=== PATIENT | female | born 1935 | race Caucasian/White ===

== ENCOUNTER → 2017-02-13 | Outpatient (CLI) | payer BC ==
[~2017-02-13] MED LIST: ACET-1256 PO; ASCO500C43 PO; ASPI81TA28 PO; CALC-51 PO; CETI10TA84 PO; CHOL100027 PO; FLUT0.15 NAE; GLUC10007 PO; LISI-729 PO; METO50TA16 PO; MULT-506 PO; OMEG10007 PO; POTA10CA28 PO; PRLSR20 PO; TRIA37.5 PO; VLTG TOP
[2017-02-13 13:28] LABS: ALT/SGPT 32 U/L (12-78); AST/SGOT 24 U/L (15-37); BLOOD UREA NITROGEN 20 mg/dl (7-18); BUN/CREATININE RATIO 17.8 (10-20); CALCIUM 9.7 mg/dl (8.5-10.1); CARBON DIOXIDE 25 mmol/L (21-32); CHLORIDE 106 mmol/L (98-107); CHOLESTEROL 150 mg/dl (0-200); GLUCOSE 103 mg/dl (70-99); SODIUM 140 mmol/L (136-145); TRIGLYCERIDES 227 mg/dl (0-150); VERY LOW DENSITY LIPOPROT CALC 45 mg/dl
[2017-02-13 13:33] LABS: ALB/GLOB RATIO 0.9 (0.9-2); ALKALINE PHOSPHATASE 65 U/L (45-117); CHOLESTEROL/HDL RATIO 3.8; HDL CHOLESTEROL 40 mg/dl; LDL CHOLESTEROL CALCULATED 65 mg/dl
[2017-02-13 13:58] LABS: ESTIMATED AVERAGE GLUCOSE 134 mg/dl; HA1C FLAG Normal (Normal)
== END | disposition home or self-care (01) ==
LOC: C.LABPVFM 07:58
PROVIDERS: ATTEND Family Medicine
DX: E78.5 Hyperlipidemia, unspecified (principal); M25.532 Pain in left wrist; I10 Essential (primary) hypertension; R73.03 Prediabetes

== ENCOUNTER → 2017-08-16 | Outpatient (CLI) | payer BC ==
[2017-08-16 13:13] LABS: HEMOGLOBIN A1C 6.3 % (4.5-5.6)
== END | disposition home or self-care (01) ==
LOC: C.LABPVFM 08:10
PROVIDERS: ATTEND Internal Medicine Cardiovascular Disease
DX: E78.5 Hyperlipidemia, unspecified (principal); R73.01 Impaired fasting glucose; K21.0 Gastro-esophageal reflux disease with esophagitis; I48.0 Paroxysmal atrial fibrillation; I10 Essential (primary) hypertension

== ENCOUNTER → 2017-09-17 | Outpatient (CLI) | payer BC ==
--- NOTE | 2017-09-17 09:32 | DIAGNOSTIC IMAGING REPORT ---
LEFT HIP 2 VIEWS HISTORY: Left hip pain. COMPARISON: None. FINDINGS: There is no fracture or dislocation. Soft tissues are unremarkable. The visualized pelvic bones are intact. Cartilage spaces are maintained for age. IMPRESSION: Unremarkable left hip for age. Electronically signed by: Manuel Gilbert M.D. 09/17/2017 9:30 AM Dictated Date/Time: 09/17/2017 9:27 AM
--- NOTE | 2017-09-17 09:48 | DIAGNOSTIC IMAGING REPORT ---
L-SPINE MIN 4 VIEWS ROUTINE CLINICAL HISTORY: Lower back pain. Left hip pain. COMPARISON: Lumbar spine radiographs January 08, 2012. FINDINGS: Mild levoscoliosis of the lumbar spine is noted. No fracture or suspicious lesion is identified by radiography. Vertebral body heights are maintained. There is moderate to severe multilevel disc space narrowing with osteophytosis and vacuum disc phenomenon. There is severe multilevel facet arthrosis. IMPRESSION: 1. No lumbar spine fracture or subluxation. 2. 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 3. Mild levoscoliosis of the lumbar spine. Electronically signed by: Jose Segura M.D. 09/17/2017 9:47 AM Dictated Date/Time: 09/17/2017 9:45 AM
== END | disposition home or self-care (01) ==
LOC: C.RAD 08:47
PROVIDERS: ATTEND Family Medicine
DX: M25.552 Pain in left hip (principal)

== ENCOUNTER 2020-07-18 20:29 | Inpatient (IN) ==
--- NOTE | 2020-07-18 20:40 | Emergency Department Note ---
Impression & Plan Acute respiratory failure with hypoxemia, Dehydration, COVID-19 ED Provider Note NAME: TIMA DAVIDSON AGE: 85 SEX: F : 1935 ARRIVES VIA: Ambulance INFORMANT: Patient, ED PROVIDER(S): Marquise Gaytan MD Chief Complaint: Weakness HPI: Patient does present from home for increasing weakness and fatigue. Ambulance did picker operator the patient as she was unable to get out of bed. Patient has had worsening symptoms of fatigue over the last 7 days. The patient has had decreased p.o. intake. Patient does live with her who is having similar symptoms. Patient denies fever chills chest pains or shortness of breath but the patient was noted to have fever of 100.9 and did have an oxygen requirement as the patient was 88% on room air. Patient denies any cough. Patient's BSG prior to arrival was just above 200. Patient did receive 100 cc of IV fluids in route. Per review of the chart the patient does have a known history of A. fib not on anticoagulation additional hypertension hyperlipidemia. The patient did not take her medications today. ROS: See HPI for pertinent positives and negatives. A total of 10 systems were reviewed and otherwise negative. Past medical history: See below Surgical history: See below Social history: See below Physical Exam: GENERAL: Nasal cannula and mask in place. EYE EXAM: Normal conjunctiva. PERRL, no anisocoria and EOM's grossly intact w/o pain. NECK: Supple, no nuchal rigidity, no adenopathy, non-tender. No signs of meningismus. LUNGS: Crackles throughout. Normal chest wall mechanics. HEART: NSR, no MRG. ABDOMEN: Abdomen soft, non-tender, normo-active bowel sounds, no masses, no rebound or guarding. BACK: No CVA TTP. SKIN: No rashes and no bruising. UPPER EXTREMITIES: Upper extremities are grossly normal. LOWER EXTREMITIES: Grossly normal, no edema. Negative Homans' sign bilaterally. NEURO EXAM: A&O x3, cranial nerves II-XII grossly intact, normal speech, moves all 4 extremities on command w/o issue. Differential diagnoses: Infection, dehydration, metabolic abnormality, hypo/hyperglycemia, electrolyte disturbance, anemia, hypoxia, cardiac sources, intracerebral event, toxicologic, neurologic, as well as other pathologies. Course: Patient was seen and evaluated the bedside. Full history physical exam was performed. EKG: Indication: weakness Normal sinus rhythm, rate 87, normal intervals, left axis deviation, T wave inv ersion in the high lateral leads. No significant change from comparison EKG May 2016 Imaging Studies: Radiology results as stated below per my review in the radiologist's interpretation: XR chest 1V portable HISTORY: Dyspnea COMPARISON: Chest 05/14/2016. FINDINGS: No pneumothorax. Suspect trace bilateral pleural effusions. The heart remains mildly enlarged. Hazy airspace opacities within the bilateral mid lung zones. This could represent developing pulmonary edema or a viral pneumonia. IMPRESSION: Hazy airspace opacities within the bilateral mid lung zones which could represent a developing pulmonary edema or a viral pneumonia. ACT 112: Negative or not required by law. Electronically signed by: Manuel Gilbert M.D. 07/19/2020 7:40 AM Dictated: 07/19/20738Transcribed: 07/19/20738 Cardiac monitoring: An order was placed for continuous cardiac monitoring. The monitor shows a rate 75 with sinus rhythm. MDM: Patient does present with concern for weakness and on arrival the patient does have a reported fever and oxygen requirement. Patient has had likely Covid symptoms with increasing feet fatigue and weakness. The patient's had had some similar symptoms but for more prolonged period of time. Patient's blood work shows a normal white count H&H and platelet count. The patient does have lymphopenia. The patient does have likely dehydration with a positive troponin. The patient's Covid is positive. The patient was ordered dexamethasone. Chest x-ray does show some patchiness. Given the patient's oxygen requirement fever and positive troponin believe the patient would benefit from inpatient treatment. I did speak the on-call hospitalist Dr. Sharma and the patient was admitted to the medicine service. Critical Care: I have personally spent 47 minutes of critical care time in direct management of this patient. This includes bedside care, interpretation of diagnostic studies, and testing, discussion with consultants, patient, and family members, and other require inpatient management activities. This 47 minutes is in excess of all separately billable procedures. Past Med/Surg History Medical History Anxiety HX Diabetes mellitus History of migraine History of squamous cell carcinoma EMMONAK (hard of hearing) BL H[place] Hyperlipidemia Hypertension Osteoarthritis Seasonal allergies Surgical History History of carpal tunnel surgery of right wrist History of colonoscopy History of phacoemulsification of cataract of left eye with intraocular lens implantation AND RIGHT EYE History of removal of cyst THYROID AGE 18-BENIGN? History of tonsillectomy History of tubal ligation Family History Sister Family history of reaction to anesthesia SLOW TO WAKE UP Family history of diabetes mellitus BORDERLINE Breast cancer Mother Family history of diabetes mellitus BORDERLINE Stroke Father Coronary heart disease Stroke Denies family history of Ovarian cancer Prostate cancer Myocardial infarction Colorectal cancer Social History Smoking Status: Never smoker Second Hand Exposure: Yes (SPOUSE); Hx Alcohol Use: No Hx Substance Use: No Preferred Language: Occitan Communication Ability: Effective Communication Ability Comment: [facility] Clothing Cutter Required: No Beliefs That Will Affect Care: None marital status: Current Living Situation: Spouse current occupational status: retired Other Information That Helps Us Care for You: No Feels Safe at Home: Yes Safety Concerns: Feels Safe At This Time caffeine: No Dental Care, Regularly: No Physical Activity Frequency: Does not Exercise Seatbelt Use: always Sunscreen Use: No Assistive Devices: Glasses and Oxygen - Continuous Allergies Allergies Allergy/AdvReac Type Severity Reaction Status Date / Time ibuprofen AdvReac Intermediate AFFECTS Verified 07/18/20 21:50 KIDNEY FUNCTION Home Meds Home Medications Medication Instructions Recorded Confirmed Artificial Tears (PF) 1 drp OPHTHALMIC (EYE) QID 04/10/19 07/18/20 Systane Ultra 1 drops OP BID 04/10/19 07/18/20 acetaminophen 500 mg PO UD PRN 04/10/19 07/18/20 ascorbic acid (vitamin C) [Vitamin 500 mg PO QAM 04/10/19 07/18/20 C] aspirin 81 mg PO QPM 04/10/19 07/18/20 calcium carbonate [Calcium 500] 500 mg PO QAM 04/10/19 07/18/20 cholecalciferol (vitamin D3) 1,000 units PO QAM 04/10/19 07/18/20 magnesium 200 mg PO BID 04/10/19 07/18/20 multivitamin 1 tab PO QAM 04/10/19 07/18/20 omega-3 fatty acids 1,000 mg PO QAM 04/10/19 07/18/20 potassium chloride 30 meq PO BID 07/18/20 07/18/20 Previous Rx's Medication Instructions Recorded glucosamine sulfate 500 mg tablet 500 mg PO BID #60 tab 01/04/19 blood sugar diagnostic #100 ea 07/10/19 blood-glucose meter #1 ea 07/10/19 lancets #100 ea 07/10/19 fluticasone propionate 50 See Rx Instructions .ROUTE 08/28/19 mcg/actuation nasal .COMPLEX #48 gram spray,suspension triamterene 37.5 1 tab PO BID #180 tab 01/13/20 mg-hydrochlorothiazide 25 mg tablet atorvastatin 20 mg tablet 20 mg PO HS #90 tab 02/15/20 metoprolol tartrate 50 mg tablet 50 mg PO BID #180 tab 02/15/20 triamcinolone acetonide 0.1 % 1 appln TOP BID #30 gm 03/07/20 topical cream lisinopril 5 mg tablet 5 mg PO HS #90 tab 06/21/20 omeprazole 20 mg capsule,delayed 20 mg PO DAILY #90 cap 07/11/20 release Results & Data (ED) Vital Signs Vital Signs - 24 hr 07/18/20 20:41 07/18/20 20:54 07/18/20 21:30 Temperature 38.3 C H Temperature Source Oral Pulse Rate 86 80 80 Pulse Rate from SpO2 Sensor 85 80 Respiratory Rate 25 H 24 24 Respiratory Effort / Characteristics Non-Labored Respiratory Depth Normal Respiratory Pattern Regular Blood Pressure 167/71 H 170/67 H 166/57 H Blood Pressure Mean 108 101 100 Blood Pressure Position Sitting Pulse Oximetry 92 88 L 95 Oxygen Delivery Method Nasal Cannula Room Air Nasal Cannula Oxygen Flow Rate 2 2 2 Sepsis Recent Fever Within 48 Hours Yes Sepsis New/Unexplained Change in Mental Status No Sepsis Action Taken by Nursing Physician Notified Oxygen Flow Rate - Titration 2 Pulse Oximetry Post Tiitration 94 07/18/20 22:00 07/18/20 22:31 07/18/20 22:49 Temperature 37.1 C Temperature Source Oral Pulse Rate 82 82 Pulse Rate from SpO2 Sensor 82 83 Respiratory Rate 25 H 25 H Respiratory Effort / Characteristics Respiratory Depth Respiratory Pattern Blood Pressure 150/65 H 141/50 H Blood Pressure Mean 104 71 Blood Pressure Position Pulse Oximetry 93 92 Oxygen Delivery Method Nasal Cannula Nasal Cannula Oxygen Flow Rate 2 2 Sepsis Recent Fever Within 48 Hours Sepsis New/Unexplained Change in Mental Status Sepsis Action Taken by Nursing Oxygen Flow Rate - Titration Pulse Oximetry Post Tiitration 07/18/20 23:00 07/18/20 23:30 07/19/20 00:00 Temperature Temperature Source Pulse Rate 78 75 73 Pulse Rate from SpO2 Sensor 77 75 74 Respiratory Rate 26 H 22 24 Respiratory Effort / Characteristics Respiratory Depth Respiratory Pattern Blood Pressure 134/62 115/50 L 126/58 L Blood Pressure Mean 97 92 97 Blood Pressure Position Pulse Oximetry 93 91 94 Oxygen Delivery Method Nasal Cannula Oxygen Flow Rate 2 Sepsis Recent Fever Within 48 Hours Sepsis New/Unexplained Change in Mental Status Sepsis Action Taken by Nursing Oxygen Flow Rate - Titration Pulse Oximetry Post Tiitration 07/19/20 00:30 Temperature Temperature Source Pulse Rate 72 Pulse Rate from SpO2 Sensor 72 Respiratory Rate 21 Respiratory Effort / Characteristics Respiratory Depth Respiratory Pattern Blood Pressure 124/52 L Blood Pressure Mean 86 Blood Pressure Position Pulse Oximetry 95 Oxygen Delivery Method Nasal Cannula Oxygen Flow Rate 2 Sepsis Recent Fever Within 48 Hours Sepsis New/Unexplained Change in Mental Status Sepsis Action Taken by Nursing Oxygen Flow Rate - Titration Pulse Oximetry Post Tiitration Home Medications Current Medication List: was personally reviewed by me Laboratory Data Attestation: I reviewed the patient's lab results. Result diagrams: 07/19/20 05:00 07/19/20 05:00 Lab Results 07/18/20 07/18/20 07/18/20 Range/Units 20:49 20:49 20:49 WBC 6.81 (4.8-10.8) K/uL RBC 4.32 (4.2-5.4) M/uL Hgb 13.2 (12.0-16.0) g/dL Hct 40.2 (37-47) % MCV 93.1 (80-100) fL MCH 30.6 (25-34) pg MCHC 32.8 (32-36) g/dL RDW Std Deviation 46.8 H (36.4-46.3) fL RDW Coeff of Rich 13.6 (11.5-14.5) % Plt Count 175 (130-400) K/uL MPV 10.7 H (7.4-10.4) fL Immature Gran % (Auto) 0.7 % Neut % (Auto) 74.8 % Lymph % (Auto) 12.5 % [place] % (Auto) 11.9 % Eos % (Auto) 0.0 % Baso % (Auto) 0.1 % Neut # (Auto) 5.09 (1.4-6.5) K/uL Lymph # (Auto) 0.85 L (1.2-3.4) K/uL [place] # (Auto) 0.81 H (0.11-0.59) K/uL Eos # (Auto) 0.00 (0-0.5) K/uL Baso # (Auto) 0.01 (0-0.2) K/uL Immature Gran # (Auto) 0.05 H (0.00-0.02) K/uL ESR (0-21) mm/hr PT 11.4 (9.0-12.0) Seconds INR 1.1 (0.9-1.1) APTT 29.9 (21.0-31.0) Seconds PTT Ratio 1.1 D-Dimer (0-500) ug/L FEU VBG pH (7.36-7.41) VBG pCO2 (38-50) mmHg VBG pO2 mmHg VBG HCO3 mmol/L VBG O2 Saturation % VBG Base Excess mEq/L Barometric Pressure mm/Hg Sodium 131 L (136-145) mmol/L Potassium (3.5-5.1) mmol/L Chloride 96 L (98-107) mmol/L Carbon Dioxide 27 (21-32) mmol/L Anion Gap 8.0 (3-11) BUN 23 H (7-18) mg/dl Creatinine 1.02 (0.6-1.2) mg/dl Est Cr Clr Drug Dosing 40.8 ml/min Est GFR ( Amer) 58.9 Est GFR (Non-Af Amer) 50.8 BUN/Creatinine Ratio 22.9 H (10-20) Glucose 164 H (70-99) mg/dl Calcium 8.6 (8.5-10.1) mg/dl Phosphorus (2.5-4.9) mg/dl Magnesium (1.8-2.4) mg/dl Ferritin (8-388) ng/ml Total Bilirubin 0.7 (0.2-1) mg/dl AST (15-37) U/L ALT 38 (12-78) U/L Alkaline Phosphatase 49 (45-117) U/L Troponin I 0.091 H* (0-0.045) ng/ml C-Reactive Protein (0-0.29) mg/dl NT-Pro-B Natriuret Pep 1726 (0-1800) pg/ml Total Protein 7.3 (6.4-8.2) gm/dl Albumin 2.8 L (3.4-5.0) gm/dl Globulin 4.5 H (2.5-4.0) gm/dl Albumin/Globulin Ratio 0.6 L (0.9-2) Procalcitonin (0-0.5) ng/ml COVID-19 Eval Order SARS-CoV-2, RNA, NAAT (NEGATIVE) 07/18/20 07/18/20 07/18/20 Range/Units 21:21 21:30 21:30 WBC (4.8-10.8) K/uL RBC (4.2-5.4) M/uL Hgb (12.0-16.0) g/dL Hct (37-47) % MCV (80-100) fL MCH (25-34) pg MCHC (32-36) g/dL RDW Std Deviation (36.4-46.3) fL RDW Coeff of Rich (11.5-14.5) % Plt Count (130-400) K/uL MPV (7.4-10.4) fL Immature Gran % (Auto) % Neut % (Auto) % Lymph % (Auto) % [place] % (Auto) % Eos % (Auto) % Baso % (Auto) % Neut # (Auto) (1.4-6.5) K/uL Lymph # (Auto) (1.2-3.4) K/uL [place] # (Auto) (0.11-0.59) K/uL Eos # (Auto) (0-0.5) K/uL Baso # (Auto) (0-0.2) K/uL Immature Gran # (Auto) (0.00-0.02) K/uL ESR (0-21) mm/hr PT (9.0-12.0) Seconds INR (0.9-1.1) APTT (21.0-31.0) Seconds PTT Ratio D-Dimer (0-500) ug/L FEU VBG pH 7.38 (7.36-7.41) VBG pCO2 46 (38-50) mmHg VBG pO2 35 mmHg VBG HCO3 27 mmol/L VBG O2 Saturation 64.2 % VBG Base Excess 1.1 mEq/L Barometric Pressure 737.1 mm/Hg Sodium (136-145) mmol/L Potassium (3.5-5.1) mmol/L Chloride (98-107) mmol/L Carbon Dioxide (21-32) mmol/L Anion Gap (3-11) BUN (7-18) mg/dl Creatinine (0.6-1.2) mg/dl Est Cr Clr Drug Dosing ml/min Est GFR ( Amer) Est GFR (Non-Af Amer) BUN/Creatinine Ratio (10-20) Glucose (70-99) mg/dl Calcium (8.5-10.1) mg/dl Phosphorus (2.5-4.9) mg/dl Magnesium (1.8-2.4) mg/dl Ferritin (8-388) ng/ml Total Bilirubin (0.2-1) mg/dl AST (15-37) U/L ALT (12-78) U/L Alkaline Phosphatase (45-117) U/L Troponin I (0-0.045) ng/ml C-Reactive Protein (0-0.29) mg/dl NT-Pro-B Natriuret Pep (0-1800) pg/ml Total Protein (6.4-8.2) gm/dl Albumin (3.4-5.0) gm/dl Globulin (2.5-4.0) gm/dl Albumin/Globulin Ratio (0.9-2) Procalcitonin (0-0.5) ng/ml COVID-19 Eval Order Covid19 IDNow atMSDC SARS-CoV-2, RNA, NAAT POSITIVE A* (NEGATIVE) 07/18/20 07/18/20 07/18/20 Range/Units 23:38 23:38 23:38 WBC (4.8-10.8) K/uL RBC (4.2-5.4) M/uL Hgb (12.0-16.0) g/dL Hct (37-47) % MCV (80-100) fL MCH (25-34) pg MCHC (32-36) g/dL RDW Std Deviation (36.4-46.3) fL RDW Coeff of Rich (11.5-14.5) % Plt Count (130-400) K/uL MPV (7.4-10.4) fL Immature Gran % (Auto) % Neut % (Auto) % Lymph % (Auto) % [place] % (Auto) % Eos % (Auto) % Baso % (Auto) % Neut # (Auto) (1.4-6.5) K/uL Lymph # (Auto) (1.2-3.4) K/uL [place] # (Auto) (0.11-0.59) K/uL Eos # (Auto) (0-0.5) K/uL Baso # (Auto) (0-0.2) K/uL Immature Gran # (Auto) (0.00-0.02) K/uL ESR 52 H (0-21) mm/hr PT (9.0-12.0) Seconds INR (0.9-1.1) APTT (21.0-31.0) Seconds PTT Ratio D-Dimer 800 H* (0-500) ug/L FEU VBG pH (7.36-7.41) VBG pCO2 (38-50) mmHg VBG pO2 mmHg VBG HCO3 mmol/L VBG O2 Saturation % VBG Base Excess mEq/L Barometric Pressure mm/Hg Sodium (136-145) mmol/L Potassium (3.5-5.1) mmol/L Chloride (98-107) mmol/L Carbon Dioxide (21-32) mmol/L Anion Gap (3-11) BUN (7-18) mg/dl Creatinine (0.6-1.2) mg/dl Est Cr Clr Drug Dosing ml/min Est GFR ( Amer) Est GFR (Non-Af Amer) BUN/Creatinine Ratio (10-20) Glucose (70-99) mg/dl Calcium (8.5-10.1) mg/dl Phosphorus (2.5-4.9) mg/dl Magnesium (1.8-2.4) mg/dl Ferritin (8-388) ng/ml Total Bilirubin (0.2-1) mg/dl AST (15-37) U/L ALT (12-78) U/L Alkaline Phosphatase (45-117) U/L Troponin I (0-0.045) ng/ml C-Reactive Protein (0-0.29) mg/dl NT-Pro-B Natriuret Pep (0-1800) pg/ml Total Protein (6.4-8.2) gm/dl Albumin (3.4-5.0) gm/dl Globulin (2.5-4.0) gm/dl Albumin/Globulin Ratio (0.9-2) Procalcitonin 0.10 (0-0.5) ng/ml COVID-19 Eval Order SARS-CoV-2, RNA, NAAT (NEGATIVE) 07/18/20 07/18/20 Range/Units 23:39 23:39 WBC (4.8-10.8) K/uL RBC (4.2-5.4) M/uL Hgb (12.0-16.0) g/dL Hct (37-47) % MCV (80-100) fL MCH (25-34) pg MCHC (32-36) g/dL RDW Std Deviation (36.4-46.3) fL RDW Coeff of Rich (11.5-14.5) % Plt Count (130-400) K/uL MPV (7.4-10.4) fL Immature Gran % (Auto) % Neut % (Auto) % Lymph % (Auto) % [place] % (Auto) % Eos % (Auto) % Baso % (Auto) % Neut # (Auto) (1.4-6.5) K/uL Lymph # (Auto) (1.2-3.4) K/uL [place] # (Auto) (0.11-0.59) K/uL Eos # (Auto) (0-0.5) K/uL Baso # (Auto) (0-0.2) K/uL Immature Gran # (Auto) (0.00-0.02) K/uL ESR (0-21) mm/hr PT (9.0-12.0) Seconds INR (0.9-1.1) APTT (21.0-31.0) Seconds PTT Ratio D-Dimer (0-500) ug/L FEU VBG pH (7.36-7.41) VBG pCO2 (38-50) mmHg VBG pO2 mmHg VBG HCO3 mmol/L VBG O2 Saturation % VBG Base Excess mEq/L Barometric Pressure mm/Hg Sodium (136-145) mmol/L Potassium 3.0 L (3.5-5.1) mmol/L Chloride (98-107) mmol/L Carbon Dioxide (21-32) mmol/L Anion Gap (3-11) BUN (7-18) mg/dl Creatinine (0.6-1.2) mg/dl Est Cr Clr Drug Dosing ml/min Est GFR ( Amer) Est GFR (Non-Af Amer) BUN/Creatinine Ratio (10-20) Glucose (70-99) mg/dl Calcium (8.5-10.1) mg/dl Phosphorus 2.6 (2.5-4.9) mg/dl Magnesium 1.4 L (1.8-2.4) mg/dl Ferritin 1458.2 H (8-388) ng/ml Total Bilirubin (0.2-1) mg/dl AST 34 (15-37) U/L ALT (12-78) U/L Alkaline Phosphatase (45-117) U/L Troponin I (0-0.045) ng/ml C-Reactive Protein 7.75 H (0-0.29) mg/dl NT-Pro-B Natriuret Pep (0-1800) pg/ml Total Protein (6.4-8.2) gm/dl Albumin (3.4-5.0) gm/dl Globulin (2.5-4.0) gm/dl Albumin/Globulin Ratio (0.9-2) Procalcitonin (0-0.5) ng/ml COVID-19 Eval Order SARS-CoV-2, RNA, NAAT (NEGATIVE) Administered Medications Artificial Tears (Artificial Tears) 1 drops OP QID [facility] Stop: 08/18/20 08:59 Last Admin: 07/19/20 13:26 Dose: 1 drops Documented by: [id number] Admin: 07/19/20 08:37 Dose: 1 drops Documented by: [id number] Ascorbic Acid (Ascorbic Acid 500 Mg Tab) 500 mg PO QAM [facility] Stop: 08/18/20 08:59 Last Admin: 07/19/20 08:35 Dose: 500 mg Documented by: [id number] Enoxaparin Sodium (Enoxaparin Inj 40 Mg/0.4 Ml Syr) 40 mg SQ BID [facility] Stop: 08/18/20 08:59 Last Admin: 07/19/20 08:35 Dose: 40 mg Documented by: [id number] Dexamethasone Sodium Phosphate (6 mg/ Syringe) 1.5 mls @ 1 mls/min IV DAILY [facility] Stop: 08/18/20 01:59 Last Admin: 07/19/20 03:07 Dose: 1 mls/min Documented by: [id number] Insulin Aspart (Insulin Aspart 100 Units/Ml 3 Ml Pen) 0 units SC ACHS [facility] Stop: 08/18/20 07:29 Last Admin: 07/19/20 13:25 Dose: 5 units Documented by: [id number] Cosigned by: [id number] Admin: 07/19/20 08:35 Dose: 3 units Documented by: [id number] Cosigned by: [id number] Magnesium Oxide (Magnesium Oxide 400 Mg Tab) 400 mg PO BID [facility] Stop: 08/18/20 08:59 Last Admin: 07/19/20 08:34 Dose: 400 mg Documented by: [id number] Metoprolol Tartrate (Metoprolol Tartrate 50 Mg Tab) 50 mg PO BID [facility] Stop: 08/18/20 08:59 Last Admin: 07/19/20 08:33 Dose: 50 mg Documented by: [id number] Pantoprazole Sodium (Pantoprazole 40 Mg Tab) 40 mg PO DAILY [facility] Stop: 08/18/20 08:59 Last Admin: 07/19/20 08:34 Dose: 40 mg Documented by: [id number] Triamterene/Hydrochlorothiazide (Triamterene/Hctz 37.5/25mg Tab) 1 tab PO BID [facility] Stop: 08/18/20 08:59 Last Admin: 07/19/20 08:34 Dose: 1 tab Documented by: [id number] Vitamin D (Cholecalciferol 1,000 Units 25 Mcg Tab) 1,000 units PO QAM [facility] Stop: 08/18/20 08:59 Last Admin: 07/19/20 08:33 Dose: 1,000 units Documented by: [id number] Discontinued Medications Dexamethasone (Dexamethasone Sod Inj 10 Mg/Ml Vial) 6 mg IV NOW ONE Stop: 07/18/20 22:12 Last Admin: 07/18/20 22:49 Dose: 6 mg Documented by: [id number] Sodium Chloride (Nss 1000ml) 900 mls @ 999 mls/hr IV .Q55M ONE Stop: 07/18/20 21:42 Last Infusion: 07/18/20 21:34 Dose: 0 mls/hr Documented by: [id number] Admin: 07/18/20 20:53 Dose: 999 mls/hr Documented by: [id number] Acetaminophen (Ofirmev) 65 mls @ 200 mls/hr IV NOW ONE; Protocol Stop: 07/18/20 21:08 Last Infusion: 07/18/20 21:59 Dose: 0 mls/hr Documented by: [id number] Admin: 07/18/20 21:34 Dose: 200 mls/hr Documented by: [id number] Potassium Chloride (Potassium Chloride Crtab 20 Meq Tabcr) 40 meq PO NOW STA Stop: 07/19/20 01:21 Last Admin: 07/19/20 03:14 Dose: 40 meq Documented by: [id number] Discharge Plan Visit Data Chief Complaint: Shortness of Breath/Dyspnea Stated Complaint: SHORT OF BREATH/FATIGUE ED Provider: Marquise Gaytan Discharge Problem: Acute respiratory failure with hypoxemia, Dehydration, COVID-19 Patient Disposition: Admitted As Inpatient Discharge Instructions Interventions: ED Discharge Assessment Last Done: 07/19/20 00:59
[2020-07-18] MEDS ORDERED: SODIUM CHLORIDE 0.9% IV ONE (20:48)
[2020-07-18] MEDS ORDERED: ACETAMINOPHEN 65 ML IV ONE (20:49)
[2020-07-18 21:06] LABS: Basophils # (auto) 0.01 K/uL (0-0.2); Basophils % (auto) 0.1 %; Hematocrit (blood only) 40.2 % (37-47); Hemoglobin 13.2 g/dL (12.0-16.0); Immature Granulocytes # (auto) 0.05 K/uL (0.00-0.02); Immature Granulocytes % (auto) 0.7 %; Lymphocytes # (auto) 0.85 K/uL (1.2-3.4); Lymphocytes % (auto) 12.5 %; Mean Corpuscular Hemoglobin 30.6 pg (25-34); Mean Corpuscular Hgb Conc 32.8 g/dL (32-36); Mean Corpuscular Volume 93.1 fL (80-100); Mean Platelet Volume 10.7 fL (7.4-10.4); Monocytes # (auto) 0.81 K/uL (0.11-0.59); Monocytes % (auto) 11.9 %; Neutrophils # (auto) 5.09 K/uL (1.4-6.5); Neutrophils % (auto) 74.8 %; Platelet Count 175 K/uL (130-400); RDW Coefficient of Variation 13.6 % (11.5-14.5); RDW Standard Deviation 46.8 fL (36.4-46.3); Red Blood Count 4.32 M/uL (4.2-5.4); White Blood Count 6.81 K/uL (4.8-10.8)
[2020-07-18 21:16] LABS: INR 1.1 (0.9-1.1); Partial Thromboplastin Ratio 1.1; Partial Thromboplastin Time 29.9 Seconds (21.0-31.0); Prothrombin Time 11.4 Seconds (9.0-12.0)
[2020-07-18 21:51] LABS: Base Excess VBG 1.1 mEq/L; Oxygen Saturation VBG 64.2 %; pH VBG 7.38 (7.36-7.41)
[2020-07-18 21:54] LABS: Albumin Globulin Ratio 0.6 (0.9-2); Albumin Level 2.8 gm/dl (3.4-5.0); BUN Creatinine Ratio 22.9 (10-20); Bilirubin,Total 0.7 mg/dl (0.2-1); Calcium 8.6 mg/dl (8.5-10.1); Creatinine Clr Calc Pharmacy 40.8 ml/min; Est GFR (African American) 58.9; Est GFR (Non-African American) 50.8; Globulin 4.5 gm/dl (2.5-4.0); Total Protein 7.3 gm/dl (6.4-8.2)
[2020-07-18] MEDS ORDERED: DEXAMETHASONE SOD INJ 10 MG/ML VIAL IV ONE (22:11)
--- NOTE | 2020-07-18 22:40 | History & Physical Report ---
Date of Service July 18, 2020 Assessment & Plan (1) COVID-19: 85yo C female presenting with Covid-19, hypoxic on arrival to 88% on room air. Symptoms have been persistent and progressive for appx 2 weeks -Admit to medical -Maintain isolation precautions, Airborne/Contact -Supplemental O2 as needed to maintain saturation >92% -Check inflammatory markers -Check procalcitonin -Dexamethasone 6mg IV daily -No Remdesivir given >7 days of Covid symptoms -Continue home Vitamin D and C supplementation -Tylenol, Zofan PRN -Lovenox 40 BID Present on Admission?: Yes (2) Elevated troponin: Troponin = 0.091. Patient denies CP -Check EKG STAT -Trend troponin q 8hours x 3 -Continue ASA, Atorvastatin, Lisinopril and Metoprolol Present on Admission?: Yes (3) Hypertension: Blood pressure stable at present -Continue metoprolol 50mg po BID -Continue Lisinopril -Continue to monitor Present on Admission?: Yes (4) Hyperlipidemia: Chronic. Stable -Continue Atorvastatin Present on Admission?: Yes (5) Diabetes mellitus: Chronic. XAO=192. Last HgbA1C in January 2020=7.1 -Continue to monitor -ISS as needed F/E/N - [place]. K repletion with 40mEq, repeat chemistry in AM, check Mg and PO4 x 1, CC/Heart healthy diet as tolerated Ppx - Lovenox 40 BID Code- Full Disp0 - Admit to medical/Covid Present on Admission?: Yes History of Present Illness Chief Complaint: SOB Primary Care Provider: Melissa Ewing MD Melany Cota is an 85yo female with history of HTN, HLP, DM and GERD presenting with hypoxia secondary to Covid-19. Patient began feeling ill appx 2 weeks ago with weakness and fatigue. She has had mild SOB. She denies CP, nausea, vomiting, diarrhea. No loss of taste or smell. Patient's with similar symptoms. On arrival to the ER she was found to be febrile, hypoxic to 88% on room air. Saturations improved with placement of 2L O2 by NC - currently 95% No additional complaints at this time ER Course: Tylenol, NSS x 1L Allergies Allergy/AdvReac Type Severity Reaction Status Date / Time ibuprofen AdvReac Intermediate AFFECTS Verified 07/18/20 21:50 KIDNEY FUNCTION Home Medications Medication Instructions Recorded Confirmed Type glucosamine sulfate 500 mg tablet 500 mg PO BID #60 tab 01/04/19 07/18/20 Rx Artificial Tears (PF) 1 drp OPHTHALMIC (EYE) QID 04/10/19 07/18/20 History Systane Ultra 1 drops OP BID 04/10/19 07/18/20 History acetaminophen 500 mg PO UD PRN 04/10/19 07/18/20 History ascorbic acid (vitamin C) [Vitamin 500 mg PO QAM 04/10/19 07/18/20 History C] aspirin 81 mg PO QPM 04/10/19 07/18/20 History calcium carbonate [Calcium 500] 500 mg PO QAM 04/10/19 07/18/20 History cholecalciferol (vitamin D3) 1,000 units PO QAM 04/10/19 07/18/20 History magnesium 200 mg PO BID 04/10/19 07/18/20 History multivitamin 1 tab PO QAM 04/10/19 07/18/20 History omega-3 fatty acids 1,000 mg PO QAM 04/10/19 07/18/20 History blood sugar diagnostic #100 ea 07/10/19 07/18/20 Rx blood-glucose meter #1 ea 07/10/19 07/18/20 Rx lancets #100 ea 07/10/19 07/18/20 Rx fluticasone propionate 50 See Rx Instructions .ROUTE 08/28/19 07/18/20 Rx mcg/actuation nasal .COMPLEX #48 gram spray,suspension triamterene 37.5 1 tab PO BID #180 tab 01/13/20 07/18/20 Rx mg-hydrochlorothiazide 25 mg tablet atorvastatin 20 mg tablet 20 mg PO HS #90 tab 02/15/20 07/18/20 Rx metoprolol tartrate 50 mg tablet 50 mg PO BID #180 tab 02/15/20 07/18/20 Rx triamcinolone acetonide 0.1 % 1 appln TOP BID #30 gm 03/07/20 07/18/20 Rx topical cream lisinopril 5 mg tablet 5 mg PO HS #90 tab 06/21/20 07/18/20 Rx omeprazole 20 mg capsule,delayed 20 mg PO DAILY #90 cap 07/11/20 07/18/20 Rx release potassium chloride 30 meq PO BID 07/18/20 07/18/20 History Past Med/Surg History Medical History Anxiety HX Diabetes mellitus History of migraine History of squamous cell carcinoma [place] (hard of hearing) [facility] [place] Hyperlipidemia Hypertension Osteoarthritis Seasonal allergies Surgical History History of carpal tunnel surgery of right wrist History of colonoscopy History of phacoemulsification of cataract of left eye with intraocular lens implantation AND RIGHT EYE History of removal of cyst THYROID AGE 18-BENIGN? History of tonsillectomy History of tubal ligation Family History Sister Family history of reaction to anesthesia SLOW TO WAKE UP Family history of diabetes mellitus BORDERLINE Breast cancer Mother Family history of diabetes mellitus BORDERLINE Stroke Father Coronary heart disease Stroke Denies family history of Ovarian cancer Prostate cancer Myocardial infarction Colorectal cancer Social History Smoking Status: Never smoker Second Hand Exposure: Yes (SPOUSE); Hx Alcohol Use: No Hx Substance Use: No Preferred Language: Yi Communication Ability: Effective Yard Goods Salesperson Required: No Beliefs That Will Affect Care: None marital status: Current Living Situation: Spouse current occupational status: retired Feels Safe at Home: Yes caffeine: No Dental Care, Regularly: No Physical Activity Frequency: Does not Exercise Seatbelt Use: always Sunscreen Use: No Assistive Devices: Brace/Splint/Immobilizer, Denture - Upper, Denture - Lower, Glasses and Hearing Aid - Bilateral Review of Systems Review of Systems: All systems reviewed & are unremarkable except as noted in HPI & below Physical Exam Physical Exam: General: patient resting comfortably, NAD, non-toxic in appearance, AA&O x 4, wearing mask, NC in place Skin: warm, dry, intact, no rashes or lesions HEENT: NC/AT, PERRL, EOMI, anicteric sclera, conjunctiva without injection, external ear normal to inspection and nontender, nares patent, moist mucus membranes, dentition intact, no oropharyngeal lesions, neck supple, trachea midline, no LAD, no thyromegaly, no JVD Heart: +S1/S2, regular, no m/r/g Lungs: equal air entry bilaterally, no rales/rhonchi/wheezes Abd: +BS, soft, NT/ND, no masses/organomegaly/ascites Ext: warm, 2+ pulses in UE/LE bilaterally, no clubbing/cyanosis or edema Neuro: nonfocal, patient AA&O x 4, speech intact, no facial droop, moving all extremities on command with equal strength 5/5 Results & Data Results & Data ([facility]) Vital Signs (Past 12 Hours) Vital Signs Temp Pulse Resp BP Pulse Ox 07/18/20 21:30 80 24 166/57 H 95 07/18/20 20:54 38.3 C H 80 24 170/67 H 88 L 07/18/20 20:41 86 25 H 167/71 H 92 Laboratory Results Lab Results 07/18/20 07/18/20 07/18/20 Range/Units 20:49 20:49 20:49 WBC 6.81 (4.8-10.8) K/uL RBC 4.32 (4.2-5.4) M/uL Hgb 13.2 (12.0-16.0) g/dL Hct 40.2 (37-47) % MCV 93.1 (80-100) fL MCH 30.6 (25-34) pg MCHC 32.8 (32-36) g/dL RDW Std Deviation 46.8 H (36.4-46.3) fL RDW Coeff of Rich 13.6 (11.5-14.5) % Plt Count 175 (130-400) K/uL MPV 10.7 H (7.4-10.4) fL Immature Gran % (Auto) 0.7 % Neut % (Auto) 74.8 % Lymph % (Auto) 12.5 % [place] % (Auto) 11.9 % Eos % (Auto) 0.0 % Baso % (Auto) 0.1 % Neut # (Auto) 5.09 (1.4-6.5) K/uL Lymph # (Auto) 0.85 L (1.2-3.4) K/uL [place] # (Auto) 0.81 H (0.11-0.59) K/uL Eos # (Auto) 0.00 (0-0.5) K/uL Baso # (Auto) 0.01 (0-0.2) K/uL Immature Gran # (Auto) 0.05 H (0.00-0.02) K/uL PT 11.4 (9.0-12.0) Seconds INR 1.1 (0.9-1.1) APTT 29.9 (21.0-31.0) Seconds PTT Ratio 1.1 VBG pH (7.36-7.41) VBG pCO2 (38-50) mmHg VBG pO2 mmHg VBG HCO3 mmol/L VBG O2 Saturation % VBG Base Excess mEq/L Barometric Pressure mm/Hg Sodium 131 L (136-145) mmol/L Chloride 96 L (98-107) mmol/L Carbon Dioxide 27 (21-32) mmol/L Anion Gap 8.0 (3-11) BUN 23 H (7-18) mg/dl Creatinine 1.02 (0.6-1.2) mg/dl Est Cr Clr Drug Dosing 40.8 ml/min Est GFR ( Amer) 58.9 Est GFR (Non-Af Amer) 50.8 BUN/Creatinine Ratio 22.9 H (10-20) Glucose 164 H (70-99) mg/dl Calcium 8.6 (8.5-10.1) mg/dl Total Bilirubin 0.7 (0.2-1) mg/dl ALT 38 (12-78) U/L Alkaline Phosphatase 49 (45-117) U/L NT-Pro-B Natriuret Pep 1726 (0-1800) pg/ml Total Protein 7.3 (6.4-8.2) gm/dl Albumin 2.8 L (3.4-5.0) gm/dl Globulin 4.5 H (2.5-4.0) gm/dl Albumin/Globulin Ratio 0.6 L (0.9-2) COVID-19 Eval Order SARS-CoV-2, RNA, NAAT (NEGATIVE) 07/18/20 07/18/20 07/18/20 Range/Units 21:21 21:30 21:30 WBC (4.8-10.8) K/uL RBC (4.2-5.4) M/uL Hgb (12.0-16.0) g/dL Hct (37-47) % MCV (80-100) fL MCH (25-34) pg MCHC (32-36) g/dL RDW Std Deviation (36.4-46.3) fL RDW Coeff of Rich (11.5-14.5) % Plt Count (130-400) K/uL MPV (7.4-10.4) fL Immature Gran % (Auto) % Neut % (Auto) % Lymph % (Auto) % [place] % (Auto) % Eos % (Auto) % Baso % (Auto) % Neut # (Auto) (1.4-6.5) K/uL Lymph # (Auto) (1.2-3.4) K/uL [place] # (Auto) (0.11-0.59) K/uL Eos # (Auto) (0-0.5) K/uL Baso # (Auto) (0-0.2) K/uL Immature Gran # (Auto) (0.00-0.02) K/uL PT (9.0-12.0) Seconds INR (0.9-1.1) APTT (21.0-31.0) Seconds PTT Ratio VBG pH 7.38 (7.36-7.41) VBG pCO2 46 (38-50) mmHg VBG pO2 35 mmHg VBG HCO3 27 mmol/L VBG O2 Saturation 64.2 % VBG Base Excess 1.1 mEq/L Barometric Pressure 737.1 mm/Hg Sodium (136-145) mmol/L Chloride (98-107) mmol/L Carbon Dioxide (21-32) mmol/L Anion Gap (3-11) BUN (7-18) mg/dl Creatinine (0.6-1.2) mg/dl Est Cr Clr Drug Dosing ml/min Est GFR ( Amer) Est GFR (Non-Af Amer) BUN/Creatinine Ratio (10-20) Glucose (70-99) mg/dl Calcium (8.5-10.1) mg/dl Total Bilirubin (0.2-1) mg/dl ALT (12-78) U/L Alkaline Phosphatase (45-117) U/L NT-Pro-B Natriuret Pep (0-1800) pg/ml Total Protein (6.4-8.2) gm/dl Albumin (3.4-5.0) gm/dl Globulin (2.5-4.0) gm/dl Albumin/Globulin Ratio (0.9-2) COVID-19 Eval Order Covid19 [facility] SARS-CoV-2, RNA, NAAT POSITIVE A* (NEGATIVE) Diagnostic Findings CXR by my interpretation - poor inspiratory effort, cardiomegaly, calcified aortic knob, no infiltrate/PTX/CHF Code Status & VTE Plan VTE Prophylaxis Plan VTE Prophylaxis will be ordered: Yes PG Care Time/CCT Total # of Minutes Spent Total Time Spent with Patient: Total time spent is greater than 50% in co ordination of care (as documented) at patient's floor/unit and/or counseling patient: Coding Level of Care Code 24192 Initial Inpt Care Lvl 3 Diagnoses COVID-19 U07.1 Elevated troponin R77.8 Hypertension I10 Hypertension type: unspecified Hyperlipidemia E78.5 Hyperlipidemia type: unspecified Diabetes mellitus E11.9 Diabetes mellitus type: type 2 Diabetes mellitus terminologist insulin use: without terminologist use Diabetes mellitus complication status: without complication (1) Diabetes mellitus Diabetes mellitus type: type 2 Diabetes mellitus terminologist insulin use: without terminologist use Diabetes mellitus complication status: without complication Qualified Code(s): E11.9 - Type 2 diabetes mellitus without complications (2) Hyperlipidemia Hyperlipidemia type: unspecified Qualified Code(s): E78.5 - Hyperlipidemia, unspecified (3) Hypertension Hypertension type: unspecified Qualified Code(s): I10 - Essential (primary) hypertension
[2020-07-18 23:10] LABS: Troponin I 0.091 ng/ml (0-0.045)
[2020-07-19] MEDS ORDERED: DEXAMETHASONE SOD INJ 10 MG/ML VIAL IV SCH (01:06)
[2020-07-19] MEDS ORDERED: ONDANSETRON INJ 2 MG/ML 2 ML VIAL IV PRN (01:06)
[2020-07-19] MEDS ORDERED: CARBOHYDRATES FOR HYPOGLYCEMIA PO PRN (01:06)
[2020-07-19] MEDS ORDERED: GLUCAGON FOR INJ 1 MG VIAL SQ PRN (01:06)
[2020-07-19] MEDS ORDERED: GLUCOSE 10 TABS/TUBE PO PRN (01:06)
[2020-07-19] MEDS ORDERED: GLUCOSE 40% GEL 15 GM TUBE PO PRN (01:06)
[2020-07-19] MEDS ORDERED: DEXTROSE 50% 50 ML SYRINGE IV PRN (01:06)
[2020-07-19] MEDS ORDERED: POTASSIUM CHLORIDE CRTAB 20 MEQ TABCR PO STA (01:20)
[2020-07-19 01:30] LABS: C Reactive Protein 7.75 mg/dl (0-0.29); Ferritin 1458.2 ng/ml (8-388); Magnesium 1.4 mg/dl (1.8-2.4); Phosphorus 2.6 mg/dl (2.5-4.9)
[2020-07-19 01:51] LABS: D Dimer 800 ug/L FEU (0-500)
[2020-07-19] MEDS: dexAMETHasone 6 MG in SYRINGE 0 ML IV SCH (03:07)
[2020-07-19 05:24] LABS: Basophils # (auto) 0.01 K/uL (0-0.2); Basophils % (auto) 0.2 %; Hematocrit (blood only) 40.1 % (37-47); Hemoglobin 13.5 g/dL (12.0-16.0); Immature Granulocytes # (auto) 0.05 K/uL (0.00-0.02); Immature Granulocytes % (auto) 0.9 %; Lymphocytes # (auto) 0.88 K/uL (1.2-3.4); Lymphocytes % (auto) 15.1 %; Mean Corpuscular Hemoglobin 31.5 pg (25-34); Mean Corpuscular Hgb Conc 33.7 g/dL (32-36); Mean Corpuscular Volume 93.7 fL (80-100); Mean Platelet Volume 10.3 fL (7.4-10.4); Monocytes # (auto) 0.27 K/uL (0.11-0.59); Monocytes % (auto) 4.6 %; Neutrophils % (auto) 79.2 %; Platelet Count 168 K/uL (130-400); RDW Coefficient of Variation 13.8 % (11.5-14.5); RDW Standard Deviation 47.1 fL (36.4-46.3); Red Blood Count 4.28 M/uL (4.2-5.4); White Blood Count 5.81 K/uL (4.8-10.8)
[2020-07-19 05:52] LABS: Albumin Level 2.7 gm/dl (3.4-5.0); BUN Creatinine Ratio 23.1 (10-20); Bilirubin Direct 0.2 mg/dl (0-0.2); Bilirubin,Total 0.5 mg/dl (0.2-1); Calcium 8.6 mg/dl (8.5-10.1); Creatinine Clr Calc Pharmacy 43.2 ml/min; Est GFR (Non-African American) 56.1; Potassium 3.6 mmol/L (3.5-5.1); Total Protein 7.3 gm/dl (6.4-8.2); Troponin I 0.067 ng/ml (0-0.045)
[2020-07-19 06:24] LABS: Appearance Urine Clear (Clear); Bilirubin Urine Negative (Negative); Blood Urine Negative (Negative); Color Urine Yellow; Glucose Urine UA Negative (Negative); Ketones Urine Negative (Negative); Leukocyte Esterase Urine Negative (Negative); Nitrite Urine Negative (Negative); Protein Urine Negative (Negative); Urobilinogen Urine Negative (Negative)
--- NOTE | 2020-07-19 07:41 | XRay Report ---
XR chest 1V portable HISTORY: Dyspnea COMPARISON: Chest 05/14/2016. FINDINGS: No pneumothorax. Suspect trace bilateral pleural effusions. The heart remains mildly enlarg ed. Hazy airspace opacities within the bilateral mid lung zones. This could represent developing pulm onary edema or a viral pneumonia. IMPRESSION: Hazy airspace opacities within the bilateral mid lung zones which could represent a developing pulmon magnolia edema or a viral pneumonia. ACT 112: Negative or not required by law. Electronically signed by: Manuel Gilbert M.D. 07/19/2020 7:40 AM
[2020-07-19] MEDS: METOPROLOL TARTRATE 50 MG TAB PO SCH ×2 (08:33→20:40)
[2020-07-19] MEDS: CHOLECALCIFEROL 1,000 UNITS 25 MCG TAB PO SCH (08:33)
[2020-07-19] MEDS: TRIAMTERENE/HCTZ 37.5/25MG TAB PO SCH ×2 (08:34→20:39)
[2020-07-19] MEDS: MAGNESIUM OXIDE 400 MG TAB PO SCH ×2 (08:34→20:39)
[2020-07-19] MEDS: PANTOprazole 40 MG TAB PO SCH (08:34)
[2020-07-19] MEDS: INSULIN ASPART 100 UNITS/ML 3 ML PEN SC SCH ×4 (08:35→20:37)
[2020-07-19] MEDS: ASCORBIC ACID 500 MG TAB PO SCH (08:35)
[2020-07-19] MEDS: ENOXAPARIN INJ 40 MG/0.4 ML SYR SQ SCH ×2 (08:35→20:39)
[2020-07-19] MEDS: ARTIFICIAL TEARS OP SCH ×4 (08:37→20:42)
[2020-07-19] MEDS ORDERED: NON-FORMULARY MEDICATION (Peg 400-Propylene Glycol [Systane Ultra] 0.4-0.3 % drops) OP SCH (09:00)
--- NOTE | 2020-07-19 17:39 | Hospitalist Progress Note ---
Date of Service July 19, 2020 Assessment & Plan (1) COVID-19: 85yo C female presenting with Covid-19, hypoxic on arrival to 88% on room air. Symptoms have been persistent and progressive for appx 2 weeks - -Supplemental O2 as needed to maintain saturation >89% -Dexamethasone 6mg IV daily x 10 d LD 07/28 -No Remdesivir given >7 days of Covid symptoms -Continue home Vitamin D and C supplementation -Tylenol, Zofan PRN -Lovenox 40 BID (2) Elevated troponin: Troponin = 0.091. Patient denies CP -no acute ecg changes -trended downward could be demand ischemia in face of hypoxia -Continue ASA, Atorvastatin, Lisinopril and Metoprolol (3) Hypertension: Blood pressure stable while Continues on metoprolol 50mg po BID plus Lisinopril (4) Hyperlipidemia: Chronic. Stable -Continue Atorvastatin (5) Diabetes mellitus: Chronic. GDY=732. Last HgbA1C in January 2020=7.1 -Continue to monitor -ISS as needed Ppx - Lovenox 40 BID Code- Full Admission and Anticipated Discharge Date Admission Date: July 19, 2020 Subjective Patient is resting comfortably she says she feels better she still requiring 3 to 4 L oxygen. Is a nonproductive cough Review of Systems Review of Systems: Mild distress and fatigue no headache, blurry or double vision no speech or swallowing issues no chest pain, pressure or palpitations Shortness of breath and nonproductive cough persist no abdominal pain, nausea or vomiting, diarrhea or constipation no dysuria, hematuria or frequency no focal joint pain or swelling no back pain, CVA tenderness or radicular pain no bruising, bleeding or rashes no focal signs of weakness or numbness or altered sensation no complaints of anxiety or depression.. Physical Exam Physical Exam: The patient appeared well nourished and normally developed. He is in mild distress Vital signs as documented. Head exam is normocephalic atraumatic no scleral icterus Neck is without JVD, thyromegaly, or carotid bruits. Lungs are coarse rales bilaterally clearing at the apex Cardiac exam, Rhythm is regular.. Systolic ejection murmur present Abdominal exam reveals normal bowel sounds, soft non tender, no masses Extremities are nonedematous and both pedal pulses are present Neurologic exam is alert and oriented, no focal loss of strength or sensation Skin is without bruises or rashes Psychologically is without concerns for anxiety or depression. Results & Data Results & Data ([facility]) Vital Signs (Past 12 Hours) Vital Signs Temp Pulse Resp BP Pulse Ox 07/19/20 11:37 98.4 F 64 19 131/67 95 07/19/20 08:02 98.2 F 70 16 184/72 H 92 PG Care Time/CCT Total # of Minutes Spent Total Time Spent with Patient: Total time spent is greater than 50% in coordination of care (as documented) at patient's floor/unit and/or counseling patient: Coding Level of Care Code 82016 Subseq Hosp Care Lvl 3 Diagnoses COVID-19 U07.1 Elevated troponin R77.8 Hypertension I10 Hypertension type: unspecified Hyperlipidemia E78.5 Hyperlipidemia type: unspecified Diabetes mellitus E11.9 Diabetes mellitus type: type 2 Diabetes mellitus mcfp insulin use: without manager terminal use Diabetes mellitus complication status: without complication (1) Hypertension Hypertension type: unspecified Qualified Code(s): I10 - Essential (primary) hypertension (2) Hyperlipidemia Hyperlipidemia type: unspecified Qualified Code(s): E78.5 - Hyperlipidemia, unspecified (3) Diabetes mellitus Diabetes mellitus type: type 2 Diabetes mellitus manager terminal insulin use: without mcfp use Diabetes mellitus complication status: without complication Qualified Code(s): E11.9 - Type 2 diabetes mellitus without complications
[2020-07-19] MEDS: ASPIRIN 81 MG ECTAB PO SCH (20:40)
[2020-07-19] MEDS: lisinopril 5 MG TAB PO SCH (20:41)
[2020-07-19] MEDS: ATORVASTATIN 20 MG TAB PO SCH (20:41)
--- NOTE | 2020-07-20 05:37 | Electrocardiogram Report ---
Test Reason : Blood Pressure : / mmHG Vent. Rate : 087 BPM Atrial Rate : 087 BPM P-R Int : 164 ms QRS Dur : 088 ms QT Int : 370 ms P-R-T Axes : 043 -53 102 degrees QTc Int : 445 ms Normal sinus rhythm Left axis deviation Inferior infarct (cited on or before 14-MAY-2016) Anterior infarct (cited on or before 14-MAY-2016) Abnormal ECG When compared with ECG of 14-MAY-2016 19:48, No significant change was found Confirmed by Colton Beach ([id number]) on 07/20/2020 5:37:20 AM Referred By: REFERRED SELF Confirmed By:Colton Beach
--- NOTE | 2020-07-20 07:11 | Hospitalist Progress Note ---
Date of Service July 20, 2020 Assessment & Plan (1) COVID-19: 85yo C female presenting with Covid-19, hypoxic on arrival to 88% on room air. Symptoms have been persistent and progressive for appx 2 weeks -*COVID pneumonia -Supplemental O2 as needed to maintain saturation >89% -Dexamethasone 6mg IV daily x 10 d LD 07/28 -No Remdesivir given >7 days of Covid symptoms -Continue home Vitamin D and C supplementation -Tylenol, Zofan PRN -Lovenox 40 BID (2) Elevated troponin: Troponin = 0.091. Patient denies CP -no acute ecg changes -trended downward could be demand ischemia in face of hypoxia -Continue ASA, Atorvastatin, Lisinopril and Metoprolol (3) Hypertension: Blood pressure stable while Continues on metoprolol 50mg po BID plus Lisinopril (4) Hyperlipidemia: Chronic. Stable -Continue Atorvastatin (5) Diabetes mellitus: Chronic. NSD=027. Last HgbA1C in January 2020=7.1 -Continue to monitor -ISS as needed Ppx - Lovenox 40 BID Code- Full Admission and Anticipated Discharge Date Admission Date: July 19, 2020 Subjective Patient is resting comfortably she says she feels better she still requiring 3 to 4 L oxygen. Is a nonproductive cough Review of Systems Review of Systems: Mild distress and fatigue no headache, blurry or double vision no speech or swallowing issues no chest pain, pressure or palpitations Shortness of breath and nonproductive cough persist no abdominal pain, nausea or vomiting, diarrhea or constipation no dysuria, hematuria or frequency no focal joint pain or swelling no back pain, CVA tenderness or radicular pain no bruising, bleeding or rashes no focal signs of weakness or numbness or altered sensation no complaints of anxiety or depression.. Physical Exam Physical Exam: The patient appeared well nourished and normally developed. He is in mild distress Vital signs as documented. Head exam is normocephalic atraumatic no scleral icterus Neck is without JVD, thyromegaly, or carotid bruits. Lungs are coarse rales bilaterally clearing at the apex Cardiac exam, Rhythm is regular.. Systolic ejection murmur present Abdominal exam reveals normal bowel sounds, soft non tender, no masses Extremities are nonedematous and both pedal pulses are present Neurologic exam is alert and oriented, no focal loss of strength or sensation Skin is without bruises or rashes Psychologically is without concerns for anxiety or depression. Results & Data Results & Data ([facility]) Vital Signs (Past 12 Hours) Vital Signs Temp Pulse Pulse Resp BP Pulse Ox 07/20/20 03:00 99.7 F H 69 22 175/99 H 93 07/19/20 23:01 99.0 F 60 18 131/58 L 91 07/19/20 23:00 65 07/19/20 19:51 97.9 F 68 20 145/67 H 92 PG Care Time/CCT Total # of Minutes Spent Total Time Spent with Patient: Total time spent is greater than 50% in coordination of care (as documented) at patient's floor/unit and/or counseling patient: Coding Diagnoses COVID-19 U07.1 Elevated troponin R77.8 Hypertension I10 Hypertension type: unspecified Hyperlipidemia E78.5 Hyperlipidemia type: unspecified Diabetes mellitus E11.9 Diabetes mellitus type: type 2 Diabetes mellitus intermediate frame tender insulin use: without skilled nursing use Diabetes mellitus complication status: without complication (1) Hypertension Hypertension type: unspecified Qualified Code(s): I10 - Essential (primary) hypertension (2) Hyperlipidemia Hyperlipidemia type: unspecified Qualified Code(s): E78.5 - Hyperlipidemia, unspecified (3) Diabetes mellitus Diabetes mellitus type: type 2 Diabetes mellitus skilled nursing insulin use: without intermediate frame tender use Diabetes mellitus complication status: without complicat ion Qualified Code(s): E11.9 - Type 2 diabetes mellitus without complications
[2020-07-20] MEDS: INSULIN ASPART 100 UNITS/ML 3 ML PEN SC SCH ×4 (08:30→20:57)
[2020-07-20] MEDS: dexAMETHasone 6 MG in SYRINGE 0 ML IV SCH (08:44)
[2020-07-20] MEDS: CHOLECALCIFEROL 1,000 UNITS 25 MCG TAB PO SCH (08:45)
[2020-07-20] MEDS: PANTOprazole 40 MG TAB PO SCH (08:45)
[2020-07-20] MEDS: MAGNESIUM OXIDE 400 MG TAB PO SCH ×2 (08:45→20:44)
[2020-07-20] MEDS: ENOXAPARIN INJ 40 MG/0.4 ML SYR SQ SCH ×2 (08:45→20:43)
[2020-07-20] MEDS: ASCORBIC ACID 500 MG TAB PO SCH (08:45)
[2020-07-20] MEDS: ARTIFICIAL TEARS OP SCH ×4 (08:45→20:45)
[2020-07-20] MEDS: METOPROLOL TARTRATE 50 MG TAB PO SCH ×2 (08:45→20:44)
[2020-07-20] MEDS: TRIAMTERENE/HCTZ 37.5/25MG TAB PO SCH ×2 (08:45→20:44)
[2020-07-20 10:57] LABS: Creatinine Clr Calc Pharmacy 37.1 ml/min; Est GFR (African American) 53.8; Est GFR (Non-African American) 46.4; Potassium 3.4 mmol/L (3.5-5.1)
--- NOTE | 2020-07-20 12:41 | Hospitalist Progress Note ---
Date of Service July 20, 2020 Assessment & Plan (1) COVID-19: Symptoms began 2 weeks ago Positive Covid test 07/18/2020 No indication for remdesivir or convalescent plasma Started dexamethasone with first dose 07/18/2020 -continue for 10 days unless discharged with marked improvement Okay to continue home medications including vitamin supplements Patient with atrial fibrillation. We will anticoagulate with Lovenox 40 mg every 12 hours (2) Elevated troponin: Most likely ischemic demand Peaked and now trending down No significant EKG changes (3) Hypertension: Continue Lisinopril, Metoprolol tartrate BID, and Triamterine/HCTZ Patient currently on telemetry (4) Diabetes mellitus: Random glucose 178 HgB A1c 7.1 02/01/2020 Not on insulin at home Continue insulin while on steroids (5) Atrial fibrillation: Not on chronic anticoagulation Currently on Enoxaparin 0.5mg/kg BID while inpatient Continue beta vandana Continue on telemetry (6) Chronic reflux esophagitis: Continue Pantoprazole especially as patient is on steroids Ok to discharge home on omeprazole. (7) DVT prophylaxis: Enoxaparin 40mg sq BID Admission and Anticipated Discharge Date Admission Date: July 18, 2020 Subjective Attending: Dr. Belcher Patient seen and examined at bedside. She continues to be fatigued. With supplemental oxygen she has no shortness of breath. She reports an occasional cough with very limited sputum. She denies any fever or chills or sweats. She has no nausea or vomiting. She has no diarrhea. She offers no other acute complaints. Review of Systems Review of Systems: All systems reviewed & are unremarkable except as noted in Subjective Physical Exam Physical Exam: GENERAL : No acute distress EYES: No icterus, gaze conjugate NOSE: No evidence of epistaxis. Nasal cannula is in place MOUTH: No lesions or candidiasis NECK: Supple LUNGS: Fine crackles at the bases. Deep inspiration induces cough. There is no evidence of bronchospasm or rhonchi. HEART: Regular, rate controlled. ABDOMEN: Soft, NT, ND, BS Present EXTREMITIES: No LE edema, pedal pulses intact NEURO: A&OX3 Results & Data Results & Data ([facility]) Vital Signs (Past 12 Hours) Vital Signs Temp Pulse Resp BP Pulse Ox 07/20/20 11:32 36.8 C 79 18 125/53 L 90 07/20/20 08:04 37.7 C H 76 18 129/70 91 07/20/20 03:00 37.6 C H 69 22 175/99 H 93 Laboratory Results 07/19/20 05:00 07/20/20 09:59 07/18/20 07/19/20 07/19/20 20:49 05:00 12:50 Troponin I 0.091 H* 0.067 H* 0.029 Diagnostic Findings XR chest 1V portable 07/19/2020 HISTORY: Dyspnea COMPARISON: Chest 05/14/2016. FINDINGS: No pneumothorax. Suspect trace bilateral pleural effusions. The heart remains mildly enlarged. Hazy airspace opacities within the bilateral mid lung zones. This could represent developing pulmonary edema or a viral pneumonia. IMPRESSION: Hazy airspace opacities within the bilateral mid lung zones which could represent a developing pulmonary edema or a viral pneumonia. ACT 112: Negative or not required by law. Electronically signed by: Manuel Gilbert M.D. 07/19/2020 7:40 AM PG Care Time/CCT Total # of Minutes Spent Total Time Spent with Patient: Total time spent is greater than 50% in coordination of care (as documented) at patient's floor/unit and/or counseling patient: 25 minutes Coding Level of Care Code 09923 Subseq Hosp Care Lvl 2 Diagnoses COVID-19 U07.1 Elevated troponin R77.8 Hypertension I10 Hypertension type: unspecified Diabetes mellitus E11.9 Diabetes mellitus type: type 2 Diabetes mellitus group home insulin use: without group home use Diabetes mellitus complication status: without complication Atrial fibrillation I48.91 Chronic reflux esophagitis K21.0 DVT prophylaxis Z29.9 Time Spent (min) 25 (1) Hypertension Hypertension type: unspecified Qualified Code(s): I10 - Essential (primary) hypertension (2) Diabetes mellitus Diabetes mellitus type: type 2 Diabetes mellitus group home insulin use: without group home use Diabetes mellitus complication status: without complication Qualified Code(s): E11.9 - Type 2 diabetes mellitus without complications
[2020-07-20] MEDS: ASPIRIN 81 MG ECTAB PO SCH (20:44)
[2020-07-20] MEDS: lisinopril 5 MG TAB PO SCH (20:44)
[2020-07-20] MEDS: ATORVASTATIN 20 MG TAB PO SCH (20:44)
[2020-07-21 06:34] LABS: Calcium 8.5 mg/dl (8.5-10.1); Creatinine Clr Calc Pharmacy 37.4 ml/min; Est GFR (African American) 54.4; Est GFR (Non-African American) 46.9; Potassium 3.6 mmol/L (3.5-5.1)
[2020-07-21] MEDS: INSULIN ASPART 100 UNITS/ML 3 ML PEN SC SCH ×4 (08:00→21:28)
--- NOTE | 2020-07-21 08:36 | Hospitalist Progress Note ---
Date of Service July 21, 2020 Assessment & Plan (1) COVID-19: 85yo C female presenting with Covid-19, hypoxic on arrival to 88% on room air. Symptoms have been persistent and progressive for appx 2 weeks -*COVID pneumonia -Supplemental O2 as needed to maintain saturation >89% -Dexamethasone 6mg IV daily x 10 d LD 07/28 -No Remdesivir given >7 days of Covid symptoms -Continue home Vitamin D and C supplementation -Tylenol, Zofan PRN -Lovenox 40 BID (2) Elevated troponin: Troponin = 0.091. Patient denies CP -no acute ecg changes -trended downward could be demand ischemia in face of hypoxia -Continue ASA, Atorvastatin, Lisinopril and Metoprolol (3) Hypertension: Blood pressure stable while Continues on metoprolol 50mg po BID plus Lisinopril (4) Hyperlipidemia: Chronic. Stable -Continue Atorvastatin (5) Diabetes mellitus: Chronic. QPQ=359. Last HgbA1C in January 2020=7.1 -Continue to monitor -ISS as needed Ppx - Lovenox 40 BID Code- Full Admission and Anticipated Discharge Date Admission Date: July 18, 2020 Subjective She continues to be fatigued. With supplemental oxygen she has no shortness of breath. She reports an occasional cough with very limited sputum. She denies any fever or chills or sweats. She has no nausea or vomiting. She has no diarrhea. She offers no other acute complaints. Results & Data Results & Data ([facility]) Vital Signs (Past 12 Hours) Vital Signs Temp Pulse Pulse Resp BP Pulse Ox 07/21/20 07:57 98.6 F 75 22 155/78 H 90 07/21/20 03:57 97.9 F 64 20 139/67 93 07/20/20 23:49 97.7 F 75 20 155/71 H 94 07/20/20 23:00 77 PG Care Time/CCT Total # of Minutes Spent Total Time Spent with Patient: Total time spent is greater than 50% in coordination of care (as documented) at patient's floor/unit and/or counseling patient: Coding Diagnoses COVID-19 U07.1 Elevated troponin R77.8 Hypertension I10 Hypertension type: unspecified Hyperlipidemia E78.5 Hyperlipidemia type: unspecified Diabetes mellitus E11.9 Diabetes mellitus type: type 2 Diabetes mellitus long term care social worker insulin use: without retirement use Diabetes mellitus complication status: without complication (1) Hypertension Hypertension type: unspecified Qualified Code(s): I10 - Essential (primary) hypertension (2) Hyperlipidemia Hyperlipidemia type: unspecified Qualified Code(s): E78.5 - Hyperlipidemia, unspecified (3) Diabetes mellitus Diabetes mellitus type: type 2 Diabetes mellitus retirement insulin use: without retirement use Diabetes mellitus complication status: without complication Qualified Code(s): E11.9 - Type 2 diabetes mellitus without complications
--- NOTE | 2020-07-21 08:46 | XRay Report ---
XR chest 1V portable HISTORY: COVID. Hypoxia COMPARISON: Chest 07/18/2020. FINDINGS: Progression of the moderate patchy bilateral airspace opacities compared to the prior study . The heart remains mildly enlarged. No pleural effusions. No pneumothorax. IMPRESSION: Interval progression of the moderate patchy bilateral airspace opacities consistent with a pneumonia. ACT 112: Negative or not required by law. Electronically signed by: Manuel Gilbert M.D. 07/21/2020 8:45 AM
[2020-07-21] MEDS: dexAMETHasone 6 MG in SYRINGE 0 ML IV SCH (08:53)
[2020-07-21] MEDS: METOPROLOL TARTRATE 50 MG TAB PO SCH ×2 (08:54→20:48)
[2020-07-21] MEDS: CHOLECALCIFEROL 1,000 UNITS 25 MCG TAB PO SCH (08:54)
[2020-07-21] MEDS: PANTOprazole 40 MG TAB PO SCH (08:54)
[2020-07-21] MEDS: MAGNESIUM OXIDE 400 MG TAB PO SCH ×2 (08:54→21:25)
[2020-07-21] MEDS: ASCORBIC ACID 500 MG TAB PO SCH (08:54)
[2020-07-21] MEDS: TRIAMTERENE/HCTZ 37.5/25MG TAB PO SCH ×2 (08:54→20:51)
[2020-07-21] MEDS: ENOXAPARIN INJ 40 MG/0.4 ML SYR SQ SCH ×2 (08:55→20:49)
[2020-07-21] MEDS: ARTIFICIAL TEARS OP SCH ×4 (08:56→21:50)
--- NOTE | 2020-07-21 13:28 | Hospitalist Progress Note ---
Date of Service July 21, 2020 Assessment & Plan (1) COVID-19: Symptoms began 2 weeks prior to arrival Positive Covid test 07/18/2020 No indication for remdesivir or convalescent plasma Started dexamethasone with first dose 07/18/2020 -continue for 10 days unless discharged with marked improvement Okay to continue home medications including vitamin supplements Patient with atrial fibrillation. Continue to anticoagulate with Lovenox 40 mg every 12 hours (2) Elevated troponin: Most likely ischemic demand Peaked and now trending down No significant EKG changes Patient denies any chest pain (3) Hypertension: Continue Lisinopril, Metoprolol tartrate BID, and Triamterine/HCTZ Patient currently on telemetry (4) Diabetes mellitus: Random glucose 178 HgB A1c 7.1 02/01/2020 Not on insulin at home Continue insulin while on steroids Random glucose 156 If BSG consistently rises above 200 consider NPH with each dose of dexamethasone (5) Atrial fibrillation: Not on chronic anticoagulation Currently on Enoxaparin 0.5mg/kg BID while inpatient Continue beta vandana Continue on telemetry (6) Chronic reflux esophagitis: Continue Pantoprazole especially as patient is on steroids Ok to discharge home on omeprazole. (7) DVT prophylaxis: Enoxaparin 40mg sq BID Admission and Anticipated Discharge Date Admission Date: July 18, 2020 Subjective Attending: Dr. Belcher Patient seen and examined at bedside. She seems much more awake today. She continues to be on supplemental oxygen at 4 L/min via nasal cannula. She is in bedside chair eating lunch and has no shortness of breath with supplemental oxygen either conversationally or while eating. She denies fever, sweats, chills. She has no new acute complaints. Review of Systems Review of Systems: All systems reviewed & are unremarkable except as noted in Subjective Physical Exam Physical Exam: GENERAL : No acute distress EYES: No icterus, gaze conjugate NOSE: No evidence of epistaxis MOUTH: No lesions or candidiasis NECK: Supple LUNGS: Patient with crackles at the bases. She otherwise is clear to auscultation. She has good inspiratory effort and no induced cough with deep breathing. HEART: Regular, rate controlled ABDOMEN: Soft, NT, ND, BS Present EXTREMITIES: No LE edema, pedal pulses intact NEURO: A&OX3 Results & Data Results & Data ([facility]) Vital Signs (Past 12 Hours) Vital Signs Temp Pulse Resp BP Pulse Ox 07/21/20 11:47 36.7 C 64 19 161/67 H 92 07/21/20 07:57 37.0 C 75 22 155/78 H 90 07/21/20 03:57 36.6 C 64 20 139/67 93 Laboratory Results 07/19/20 05:00 07/21/20 05:03 Diagnostic Findings XR chest 1V portable 07/21/2020 HISTORY: COVID. Hypoxia COMPARISON: Chest 07/18/2020. FINDINGS: Progression of the moderate patchy bilateral airspace opacities compared to the prior study. The heart remains mildly enlarged. No pleural effusions. No pneumothorax. IMPRESSION: Interval progression of the moderate patchy bilateral airspace opacities consistent with a pneumonia. Electronically signed by: Manuel Gilbert M.D. 07/21/2020 8:45 AM PG Care Time/CCT Total # of Minutes Spent Total Time Spent with Patient: Total time spent is greater than 50% in coordination of care (as documented) at patient's floor/unit and/or counseling patient: 25 minutes Coding Level of Care Code 27285 Subseq Hosp Care Lvl 2 Diagnoses COVID-19 U07.1 Elevated troponin R77.8 Hypertension I10 Hypertension type: unspecified Diabetes mellitus E11.9 Diabetes mellitus complication status: without complication Diabetes mellitus local intermodal truck driver insulin use: without local intermodal truck driver use Diabetes mellitus type: type 2 Atrial fibrillation I48.91 Chronic reflux esophagitis K21.0 DVT prophylaxis Z29.9 Time Spent (min) 25 (1) Diabetes mellitus Diabetes mellitus complication status: without complication Diabetes mellitus local intermodal truck driver insulin use: without care home use Diabetes mellitus type: type 2 Qualified Code(s): E11.9 - Type 2 diabetes mellitus without complications (2) Hypertension Hypertension type: unspecified Qualified Code(s): I10 - Essential (primary) hypertension
[2020-07-21] MEDS: ATORVASTATIN 20 MG TAB PO SCH (20:47)
[2020-07-21] MEDS: ASPIRIN 81 MG ECTAB PO SCH (20:48)
[2020-07-21] MEDS: lisinopril 5 MG TAB PO SCH (20:53)
[2020-07-22] MEDS: INSULIN ASPART 100 UNITS/ML 3 ML PEN SC SCH ×4 (09:03→21:56)
[2020-07-22] MEDS: TRIAMTERENE/HCTZ 37.5/25MG TAB PO SCH ×2 (09:04→20:16)
[2020-07-22] MEDS: ENOXAPARIN INJ 40 MG/0.4 ML SYR SQ SCH ×2 (09:04→20:18)
[2020-07-22] MEDS: dexAMETHasone 6 MG in SYRINGE 0 ML IV SCH (09:04)
[2020-07-22] MEDS: ASCORBIC ACID 500 MG TAB PO SCH (09:04)
[2020-07-22] MEDS: ARTIFICIAL TEARS OP SCH ×4 (09:04→20:19)
[2020-07-22] MEDS: CHOLECALCIFEROL 1,000 UNITS 25 MCG TAB PO SCH (09:04)
[2020-07-22] MEDS: PANTOprazole 40 MG TAB PO SCH (09:04)
[2020-07-22] MEDS: METOPROLOL TARTRATE 50 MG TAB PO SCH ×2 (09:04→20:17)
[2020-07-22] MEDS: MAGNESIUM OXIDE 400 MG TAB PO SCH ×2 (10:21→20:21)
--- NOTE | 2020-07-22 15:48 | Hospitalist Progress Note ---
Date of Service July 22, 2020 Assessment & Plan (1) COVID-19: admitting physician felt Remdesivir was not warranted, but with excalation of hypoxia will start remdesivir 07/22 as covid test was + here 07/18, pt will continue on dexamethasone pt has worsening acute respiratory failure with hypoxia, secondary to covid pneumonia (2) Elevated troponin: Troponin = 0.091. Patient denies CP -no acute ecg changes -trended downward could be demand ischemia in face of hypoxia -Continue ASA, Atorvastatin, Lisinopril and Metoprolol (3) Hypertension: Blood pressure stable while Continues on metoprolol 50mg po BID plus Lisinopril (4) Diabetes mellitus: Chronic. YBW=304. Last HgbA1C in January 2020=7.1 -Continue to monitor -ISS as needed (5) Atrial fibrillation: is on metoprolol, nsr on presentation (6) Chronic reflux esophagitis: remains on pantoprozole (7) DVT prophylaxis: Ppx - Lovenox 40 bid Code- Full Admission and Anticipated Discharge Date Admission Date: July 18, 2020 Subjective this pt is a bit confused she is not improving more so having increased oxygen demands Review of Systems Review of Systems: Mild distress and fatigue no headache, blurry or double vision no speech or swallowing issues no chest pain, pressure or palpitations Persist shortness of breath, nonproductive cough, breathlessness no abdominal pain, nausea or vomiting, diarrhea or constipation no dysuria, hematuria or frequency no focal joint pain or swelling no back pain, CVA tenderness or radicular pain no bruising, bleeding or rashes no focal signs of weakness or numbness or altered sensation no complaints of anxiety or depression.. Physical Exam Physical Exam: The patient appeared well nourished and normally developed. Vital signs as documented. Head exam is normocephalic atraumatic no scleral icterus Neck is without JVD, thyromegaly, or carotid bruits. Lungs are coarse bilaterally no focal air loss Cardiac exam, Rhythm is regular.. No murmurs, rubs or gallops. Abdominal exam reveals normal bowel sounds, soft non tender, no masses Extremities are nonedematous and both pedal pulses are present Neurologic exam slightly confused Skin is without bruises or rashes Psychologically is without concerns for anxiety or depression. Results & Data Results & Data ([facility]) Vital Signs (Past 12 Hours) Vital Signs Temp Pulse Pulse Resp BP Pulse Ox 07/22/20 15:00 97.5 F L 71 22 142/66 H 93 07/22/20 11:00 97.5 F L 65 20 171/73 H 92 07/22/20 07:00 97.7 F 68 20 171/80 H 91 PG Care Time/CCT Total # of Minutes Spent Total Time Spent with Patient: Total time spent is greater than 50% in coordination of care (as documented) at patient's floor/unit and/or counseling patient: Coding Level of Care Code 80240 Subseq Hosp Care Lvl 3 Diagnoses COVID-19 U07.1 Elevated troponin R77.8 Hypertension I10 Hypertension type: unspecified Diabetes mellitus E11.9 Diabetes mellitus type: type 2 Diabetes mellitus long term acute care registered nurse insulin use: without senior care use Diabetes mellitus complication status: without complication Atrial fibrillation I48.91 Chronic reflux esophagitis K21.0 DVT prophylaxis Z29.9 (1) Hypertension Hypertension type: unspecified Qualified Code(s): I10 - Essential (primary) h ypertension (2) Diabetes mellitus Diabetes mellitus type: type 2 Diabetes mellitus senior care insulin use: without long term acute care registered nurse use Diabetes mellitus complication status: without complication Qualified Code(s): E11.9 - Type 2 diabetes mellitus without complications
[2020-07-22] MEDS ORDERED: REMDESIVIR 200 MG in SODIUM CHLORIDE 0.9% 210 ML IV ONE (16:30)
[2020-07-22] MEDS ORDERED: SODIUM CHLORIDE 0.9% 10ML FLUSH IV SCH (18:30)
[2020-07-22] MEDS: ASPIRIN 81 MG ECTAB PO SCH (20:16)
[2020-07-22] MEDS: ATORVASTATIN 20 MG TAB PO SCH (20:17)
[2020-07-22] MEDS: lisinopril 5 MG TAB PO SCH (20:21)
[2020-07-23] MEDS: ARTIFICIAL TEARS OP SCH ×4 (07:48→20:46)
[2020-07-23] MEDS: METOPROLOL TARTRATE 50 MG TAB PO SCH ×2 (07:49→20:34)
[2020-07-23] MEDS: ENOXAPARIN INJ 40 MG/0.4 ML SYR SQ SCH ×2 (07:49→20:45)
[2020-07-23] MEDS: PANTOprazole 40 MG TAB PO SCH (07:50)
[2020-07-23] MEDS: TRIAMTERENE/HCTZ 37.5/25MG TAB PO SCH ×2 (07:50→20:46)
[2020-07-23] MEDS: ASCORBIC ACID 500 MG TAB PO SCH (07:51)
[2020-07-23] MEDS: CHOLECALCIFEROL 1,000 UNITS 25 MCG TAB PO SCH (07:51)
[2020-07-23] MEDS: MAGNESIUM OXIDE 400 MG TAB PO SCH ×2 (07:54→22:05)
[2020-07-23] MEDS: dexAMETHasone 6 MG in SYRINGE 0 ML IV SCH (07:55)
[2020-07-23] MEDS: INSULIN ASPART 100 UNITS/ML 3 ML PEN SC SCH ×4 (07:56→20:36)
--- NOTE | 2020-07-23 10:48 | Hospitalist Progress Note ---
Date of Service July 23, 2020 Assessment & Plan (1) Acute respiratory failure with hypoxemia: stable on 6L NC today, able to ambulate in the room try to wean as tolerated (2) COVID-19: with multifocal pneumonia on CXR and hypoxia, requiring 6L NC today continue dexamethasone and Remdesivir, day 2 other than some fatigue she is doing well (3) Elevated troponin: Troponin = 0.091. Patient denies CP -no acute ecg changes -trended downward -- this is demand ischemia in face of hypoxia no need to monitor further -Continue ASA, Atorvastatin, Lisinopril and Metoprolol (4) Hypertension: Blood pressure stable while Continues on metoprolol 50mg po BID plus Lisinopril (5) Diabetes mellitus: Chronic. EWR=906. Last HgbA1C in January 2020=7.1 monitor for hypoglycemia treat hyperglycemia with ISS, glucose 141 this morning (6) Atrial fibrillation: is on metoprolol, nsr on presentation (7) Chronic reflux esophagitis: remains on pantoprozole (8) DVT prophylaxis: Ppx - Lovenox 40 bid Code- Full Admission and Anticipated Discharge Date Admission Date: July 18, 2020 Subjective patient doing well, OOB in her chair all morning, eating well, she is washing up at the sink she is weak and fatigued but denies fever/chills, cough has a little bit of dyspnea when ambulating in the room reviewed chart reviewed labs, glucose was 141 this morning Review of Systems Review of Systems: All systems reviewed & are unremarkable except as noted in Subjective Constitutional: + fatigue and + weakness; no fever Respiratory: + dyspnea on exertion; no cough and no dyspnea Cardiovascular: no chest pain and no edema Physical Exam Constitutional: WD/WN, vitals as above no acute distress Neck: trachea midline, no thyromegaly Respiratory: normal respiratory effort, lungs clear to auscultation Cardiovascular: RRR, no murmur, no edema Gastrointestinal (Abdomen): normal bowel sounds, soft, nontender, no hepatosplenomegaly Musculoskeletal: no cyanosis or clubbing, extremities motor strength 5/5 Skin: no rashes, warm and dry Neurologic: patellar DTR's 2+ bilat, sensation intact and PERRL, EOMI, accommodation nl, no face palsy, no dysarthria Psychiatric: A+Ox3, euthymic affect Lymphatic: no cervical or axillary lymphadenopathy Results & Data Results & Data ([facility]) Vital Signs (Past 12 Hours) Vital Signs Temp Pulse Pulse Pulse Resp BP Pulse Ox 07/23/20 07:33 36.8 C 54 L 19 143/54 H 92 07/23/20 03:50 36.8 C 61 19 146/60 H 95 07/23/20 01:08 74 07/22/20 23:51 37.0 C 59 L 20 177/72 H 91 Laboratory Results Laboratory Results - last 24 hr 07/22/20 07/22/20 07/22/20 11:52 16:35 20:55 POC Glucose 247 H 205 H 217 H 07/23/20 07:31 POC Glucose 141 H Medications Administered Current Inpatient Medications Acetaminophen (Acetaminophen 325 Mg Tab) 650 mg PO Q4H PRN PRN Reason: pain/fever Stop: 08/18/20 01:05 Artificial Tears (Artificial Tears) 1 drops OP QID [facility] Stop: 08/18/20 08:59 Last Admin: 07/23/20 07:48 Dose: 1 drops Documented by: Ascorbic Acid (Ascorbic Acid 500 Mg Tab) 500 mg PO QAM [facility] Stop: 08/18/20 08:59 Last Admin: 07/23/20 07:51 Dose: 500 mg Documented by: Aspirin (Aspirin 81 Mg Ectab) 81 mg PO QPM [facility] Stop: 08/18/20 20:59 Last Admin: 07/22/20 20:16 Dose: 81 mg Documented by: Atorvastatin Calcium (Atorvastatin 20 Mg Tab) 20 mg PO HS [facility] Stop: 08/18/20 20:59 Last Admin: 07/22/20 20:17 Dose: 20 mg Documented by: Dextrose (Dextrose 50% 50 Ml Syringe) 25 - 50 ml IV UD PRN; Protocol PRN Reason: Hypoglycemia Protocol Stop: 08/18/20 01:05 Enoxaparin Sodium (Enoxaparin Inj 40 Mg/0.4 Ml Syr) 40 mg SQ BID [facility] Stop: 08/18/20 08:59 Last Admin: 07/23/20 07:49 Dose: 40 mg Documented by: Glucagon (Glucagon For Inj 1 Mg Vial) 1 mg SQ UD PRN; Protocol PRN Reason: Hypoglycemia Protocol Stop: 08/18/20 01:05 Glucose (Glucose 10 Tabs/Tube) 4 - 8 tabs PO UD PRN; Protocol PRN Reason: Hypoglycemia Protocol Stop: 08/18/20 01:05 Glucose (Glucose 40% Gel 15 Gm Tube) 15 - 30 gm PO UD PRN; Protocol PRN Reason: Hypoglycemia Protocol Stop: 08/18/20 01:05 Dexamethasone Sodium Phosphate (6 mg/ Syringe) 1.5 mls @ 1 mls/min IV DAILY [facility] Stop: 08/18/20 01:59 Last Admin: 07/23/20 07:55 Dose: 1 mls/min Documented by: Remdesivir 100 mg/ Sodium (Chloride) 250 mls @ 250 mls/hr IV Q24H [facility]; Protocol Stop: 07/26/20 12:59 Insulin Aspart (Insulin Aspart 100 Units/Ml 3 Ml Pen) 0 units SC ACHS [facility] Stop: 08/18/20 07:29 Last Admin: 07/23/20 07:56 Dose: Not Given Documented by: Lisinopril (Lisinopril 5 Mg Tab) 5 mg PO HS [facility] Stop: 08/18/20 20:59 Last Admin: 07/22/20 20:21 Dose: 5 mg Documented by: Magnesium Oxide (Magnesium Oxide 400 Mg Tab) 400 mg PO BID [facility] Stop: 08/18/20 08:59 Last Admin: 07/23/20 07:54 Dose: 400 mg Documented by: Metoprolol Tartrate (Metoprolol Tartrate 50 Mg Tab) 50 mg PO BID [facility] Stop: 08/18/20 08:59 Last Admin: 07/23/20 07:49 Dose: 50 mg Documented by: Miscellaneous (Carbohydrates For Hypoglycemia ) 15 - 30 gm PO UD PRN PRN Reason: Hypoglycemia Protocol Stop: 08/18/20 01:05 Ondansetron HCl (Ondansetron Inj 2 Mg/Ml 2 Ml Vial) 4 mg IV Q6H PRN PRN Reason: Nausea Stop: 08/18/20 01:05 Pantoprazole Sodium (Pantoprazole 40 Mg Tab) 40 mg PO DAILY [facility] Stop: 08/18/20 08:59 Last Admin: 07/23/20 07:50 Dose: 40 mg Documented by: Sodium Chloride (Sodium Chloride 0.9% 10ml Flush) 30 ml IV Q24H [facility] Stop: 07/26/20 12:01 Triamterene/Hydrochlorothiazide (Triamterene/Hctz 37.5/25mg Tab) 1 tab PO BID [facility] Stop: 08/18/20 08:59 Last Admin: 07/23/20 07:50 Dose: 1 tab Documented by: Vitamin D (Cholecalciferol 1,000 Units 25 Mcg Tab) 1,000 units PO QAM [facility] Stop: 08/18/20 08:59 Last Admin: 07/23/20 07:51 Dose: 1,000 units Documented by: PG Care Time/CCT Total # of Minutes Spent Total Time Spent with Patient: Total time spent is greater than 50% in coordination of care (as documented) at patient's floor/unit and/or counseling patient: Coding Level of Care Code 09237 Subseq Hosp Care Lvl 2 Diagnoses Acute respiratory failure with hypoxemia J96.01 COVID-19 U07.1 Elevated troponin R77.8 Hypertension I10 Hypertension type: unspecified Diabetes mellitus E11.9 Diabetes mellitus type: type 2 Diabetes mellitus storage management architect insulin use: without storage management architect use Diabetes mellitus complication status: without complication Atrial fibrillation I48.91 Chronic reflux esophagitis K21.0 DVT prophylaxis Z29.9 (1) Hypertension Hypertension type: unspecified Qualified Code(s): I10 - Essential (primary) hypertension (2) Diabetes mellitus Diabetes mellitus type: type 2 Diabetes mellitus fdc insulin use: without storage management architect use Diabetes mellitus complication status: without complication Qualified Code(s): E11.9 - Type 2 diabetes mellitus without complications
[2020-07-23] MEDS: REMDESIVIR 100 MG in SODIUM CHLORIDE 0.9% 230 ML IV SCH (12:20)
[2020-07-23] MEDS: SODIUM CHLORIDE 0.9% 10ML FLUSH IV SCH (13:23)
[2020-07-23] MEDS: ATORVASTATIN 20 MG TAB PO SCH (20:33)
[2020-07-23] MEDS: ASPIRIN 81 MG ECTAB PO SCH (20:45)
[2020-07-23] MEDS: lisinopril 5 MG TAB PO SCH (20:49)
[2020-07-24 07:11] LABS: Hematocrit (blood only) 43.8 % (37-47); Hemoglobin 14.3 g/dL (12.0-16.0); Mean Corpuscular Hemoglobin 30.7 pg (25-34); Mean Corpuscular Hgb Conc 32.6 g/dL (32-36); Mean Platelet Volume 11.2 fL (7.4-10.4); Platelet Count 268 K/uL (130-400); RDW Coefficient of Variation 13.5 % (11.5-14.5); RDW Standard Deviation 45.9 fL (36.4-46.3); Red Blood Count 4.66 M/uL (4.2-5.4)
[2020-07-24 07:41] LABS: BUN Creatinine Ratio 47.8 (10-20); Calcium 9.3 mg/dl (8.5-10.1); Creatinine Clr Calc Pharmacy 38.8 ml/min; Est GFR (African American) 58.2; Est GFR (Non-African American) 50.2; Potassium 3.9 mmol/L (3.5-5.1)
[2020-07-24] MEDS: ARTIFICIAL TEARS OP SCH ×4 (08:03→20:02)
[2020-07-24] MEDS: METOPROLOL TARTRATE 50 MG TAB PO SCH ×2 (08:04→20:02)
[2020-07-24] MEDS: ENOXAPARIN INJ 40 MG/0.4 ML SYR SQ SCH ×2 (08:04→20:03)
[2020-07-24] MEDS: dexAMETHasone 6 MG in SYRINGE 0 ML IV SCH (08:04)
[2020-07-24] MEDS: PANTOprazole 40 MG TAB PO SCH (08:05)
[2020-07-24] MEDS: CHOLECALCIFEROL 1,000 UNITS 25 MCG TAB PO SCH (08:05)
[2020-07-24] MEDS: TRIAMTERENE/HCTZ 37.5/25MG TAB PO SCH ×2 (08:05→20:05)
[2020-07-24] MEDS: ASCORBIC ACID 500 MG TAB PO SCH (08:05)
[2020-07-24] MEDS: MAGNESIUM OXIDE 400 MG TAB PO SCH ×2 (08:05→20:03)
[2020-07-24] MEDS: INSULIN ASPART 100 UNITS/ML 3 ML PEN SC SCH ×4 (09:00→20:04)
--- NOTE | 2020-07-24 10:00 | Hospitalist Progress Note ---
Date of Service July 24, 2020 Assessment & Plan (1) Acute respiratory failure with hypoxemia: stable on 6L NC past 48 hours, no increased work of breathing, able to ambulate in the room try to wean as tolerated, will likely take a few days to a week (2) COVID-19: with multifocal pneumonia on CXR and hypoxia, requiring 6L NC today continue dexamethasone and Remdesivir, day 3 other than some fatigue she is doing well eating well, no fever, no increased work of breathing (3) Elevated troponin: Troponin = 0.091. Patient denies CP -no acute ecg changes -trended downward -- this is demand ischemia in face of hypoxia no need to monitor further -Continue ASA, Atorvastatin, Lisinopril and Metoprolol (4) Hypertension: Blood pressure stable while Continues on metoprolol 50mg po BID plus Lisinopril (5) Diabetes mellitus: Chronic. UHF=993. Last HgbA1C in January 2020=7.1 monitor for hypoglycemia treat hyperglycemia with ISS, glucose levels acceptable (6) Atrial fibrillation: is on metoprolol, nsr on presentation (7) Chronic reflux esophagitis: remains on pantoprozole (8) DVT prophylaxis: Ppx - Lovenox 40 bid Code- Full Admission and Anticipated Discharge Date Admission Date: July 18, 2020 Subjective patient doing great today, eating well, had a BM which made her feel better she is still on 6L but not distress at all she is ambulating in the room WBC is 12k, Hb 14, plts 268 Na is 135, Cr is 1.03 glucose 140-230 Review of Systems Review of Systems: All systems reviewed & are unremarkable except as noted in Subjective Respiratory: + cough and + dyspnea on exertion; no dyspnea Cardiovascular: no chest pain Gastrointestinal: no abdominal pain, no nausea, no vomiting, no constipation and no diarrhea/loose stools Physical Exam Constitutional: WD/WN, vitals as above no acute distress Neck: trachea midline, no thyromegaly Respiratory: normal respiratory effort, lungs clear to auscultation Cardiovascular: RRR, no murmur, no edema Gastrointestinal (Abdomen): normal bowel sounds, soft, nontender, no hepatosplenomegaly Musculoskeletal: no cyanosis or clubbing, extremities motor strength 5/5 Skin: no rashes, warm and dry Neurologic: patellar DTR's 2+ bilat, sensation intact and PERRL, EOMI, accommodation nl, no face palsy, no dysarthria Psychiatric: A+Ox3, euthymic affect Lymphatic: no cervical or axillary lymphadenopathy Results & Data Results & Data ([facility]) Vital Signs (Past 12 Hours) Vital Signs Temp Pulse Pulse Resp BP Pulse Ox 07/24/20 07:45 36.6 C 58 L 18 147/70 H 93 07/24/20 04:00 36.9 C 55 L 20 143/55 H 93 07/24/20 00:38 53 L 07/23/20 23:49 36.9 C 56 L 19 149/72 H 95 Laboratory Results Laboratory Results - last 24 hr 07/23/20 07/23/20 07/23/20 11:14 16:30 20:34 WBC RBC Hgb Hct MCV MCH MCHC RDW Std Deviation RDW Coeff of Rich Plt Count MPV Sodium Potassium Chloride Carbon Dioxide Anion Gap BUN Creatinine Est Cr Clr Drug Dosing Est GFR ( Amer) Est GFR (Non-Af Amer) BUN/Creatinine Ratio Glucose POC Glucose 246 H 213 H 199 H Calcium 07/24/20 07/24/20 07/24/20 06:17 06:17 07:48 WBC 12.50 H RBC 4.66 Hgb 14.3 Hct 43.8 MCV 94.0 MCH 30.7 MCHC 32.6 RDW Std Deviation 45.9 RDW Coeff of Rich 13.5 Plt Count 268 MPV 11.2 H Sodium 135 L Potassium 3.9 Chloride 100 Carbon Dioxide 26 Anion Gap 9.0 BUN 49 H Creatinine 1.03 Est Cr Clr Drug Dosing 38.8 Est GFR ( Amer) 58.2 Est GFR (Non-Af Amer) 50.2 BUN/Creatinine Ratio 47.8 H Glucose 149 H POC Glucose 141 H Calcium 9.3 Medications Administered Current Inpatient Medications Acetaminophen (Acetaminophen 325 Mg Tab) 650 mg PO Q4H PRN PRN Reason: pain/fever Stop: 08/18/20 01:05 Artificial Tears (Artificial Tears) 1 drops OP QID [facility] Stop: 08/18/20 08:59 Last Admin: 07/24/20 08:03 Dose: 1 drops Documented by: Ascorbic Acid (Ascorbic Acid 500 Mg Tab) 500 mg PO QAM [facility] Stop: 08/18/20 08:59 Last Admin: 07/24/20 08:05 Dose: 500 mg Documented by: Aspirin (Aspirin 81 Mg Ectab) 81 mg PO QPM [facility] Stop: 08/18/20 20:59 Last Admin: 07/23/20 20:45 Dose: 81 mg Documented by: Atorvastatin Calcium (Atorvastatin 20 Mg Tab) 20 mg PO HS [facility] Stop: 08/18/20 20:59 Last Admin: 07/23/20 20:33 Dose: 20 mg Documented by: Dextrose (Dextrose 50% 50 Ml Syringe) 25 - 50 ml IV UD PRN; Protocol PRN Reason: Hypoglycemia Protocol Stop: 08/18/20 01:05 Enoxaparin Sodium (Enoxaparin Inj 40 Mg/0.4 Ml Syr) 40 mg SQ BID [facility] Stop: 08/18/20 08:59 Last Admin: 07/24/20 08:04 Dose: 40 mg Documented by: Glucagon (Glucagon For Inj 1 Mg Vial) 1 mg SQ UD PRN; Protocol PRN Reason: Hypoglycemia Protocol Stop: 08/18/20 01:05 Glucose (Glucose 10 Tabs/Tube) 4 - 8 tabs PO UD PRN; Protocol PRN Reason: Hypoglycemia Protocol Stop: 08/18/20 01:05 Glucose (Glucose 40% Gel 15 Gm Tube) 15 - 30 gm PO UD PRN; Protocol PRN Reason: Hypoglycemia Protocol Stop: 08/18/20 01:05 Dexamethasone Sodium Phosphate (6 mg/ Syringe) 1.5 mls @ 1 mls/min IV DAILY [facility] Stop: 08/18/20 01:59 Last Admin: 07/24/20 08:04 Dose: 1 mls/min Documented by: Remdesivir 100 mg/ Sodium (Chloride) 250 mls @ 250 mls/hr IV Q24H [facility]; Protocol Stop: 07/26/20 12:59 Last Infusion: 07/23/20 13:22 Dose: Infused Documented by: Insulin Aspart (Insulin Aspart 100 Units/Ml 3 Ml Pen) 0 units SC ACHS [facility] Stop: 08/18/20 07:29 Last Admin: 07/23/20 20:36 Dose: 1 units Documented by: Lisinopril (Lisinopril 5 Mg Tab) 5 mg PO HS [facility] Stop: 08/18/20 20:59 Last Admin: 07/23/20 20:49 Dose: 5 mg Documented by: Magnesium Oxide (Magnesium Oxide 400 Mg Tab) 400 mg PO BID [facility] Stop: 08/18/20 08:59 Last Admin: 07/24/20 08:05 Dose: 400 mg Documented by: Metoprolol Tartrate (Metoprolol Tartrate 50 Mg Tab) 50 mg PO BID [facility] Stop: 08/18/20 08:59 Last Admin: 07/24/20 08:04 Dose: 50 mg Documented by: Miscellaneous (Carbohydrates For Hypoglycemia ) 15 - 30 gm PO UD PRN PRN Reason: Hypoglycemia Protocol Stop: 08/18/20 01:05 Ondansetron HCl (Ondansetron Inj 2 Mg/Ml 2 Ml Vial) 4 mg IV Q6H PRN PRN Reason: Nausea Stop: 08/18/20 01:05 Pantoprazole Sodium (Pantoprazole 40 Mg Tab) 40 mg PO DAILY [facility] Stop: 08/18/20 08:59 Last Admin: 07/24/20 08:05 Dose: 40 mg Documented by: Sodium Chloride (Sodium Chloride 0.9% 10ml Flush) 30 ml IV Q24H [facility] Stop: 07/26/20 12:01 Last Admin: 07/23/20 13:23 Dose: 30 ml Documented by: Triamterene/Hydrochlorothiazide (Triamterene/Hctz 37.5/25mg Tab) 1 tab PO BID [facility] Stop: 08/18/20 08:59 Last Admin: 07/24/20 08:05 Dose: 1 tab Documented by: Vitamin D (Cholecalciferol 1,000 Units 25 Mcg Tab) 1,000 units PO QAM [facility] Stop: 08/18/20 08:59 Last Admin: 07/24/20 08:05 Dose: 1,000 units Documented by: PG Care Time/CCT Total # of Minutes Spent Total Time Spent with Patient: Total time spent is greater than 50% in coordination of care (as documented) at patient's floor/unit and/or counseling patient: Coding Level of Care Code 56622 Subseq Hosp Care Lvl 2 Diagnoses Acute respiratory failure with hypoxemia J96.01 COVID-19 U07.1 Elevated troponin R77.8 Hypertension I10 Hypertension type: unspecified Diabetes mellitus E11.9 Diabetes mellitus type: type 2 Diabetes mellitus correction insulin use: without general internist use Diabetes mellitus complication status: without complication Atrial fibrillation I48.91 Chronic reflux esophagitis K21.0 DVT prophylaxis Z29.9 (1) Hypertension Hypertension type: unspecified Qualified Code(s): I10 - Essential (primary) hypertension (2) Diabetes mellitus Diabetes mellitus type: type 2 Diabetes mellitus correction insulin use: without general internist use Diabetes mellitus complication status: without complication Qualified Code(s): E11.9 - Type 2 diabetes mellitus without complications
[2020-07-24] MEDS: REMDESIVIR 100 MG in SODIUM CHLORIDE 0.9% 230 ML IV SCH (12:26)
[2020-07-24] MEDS: SODIUM CHLORIDE 0.9% 10ML FLUSH IV SCH (14:06)
[2020-07-24] MEDS: ASPIRIN 81 MG ECTAB PO SCH (20:02)
[2020-07-24] MEDS: ATORVASTATIN 20 MG TAB PO SCH (20:02)
[2020-07-24] MEDS: lisinopril 5 MG TAB PO SCH (20:05)
[2020-07-25] MEDS: INSULIN ASPART 100 UNITS/ML 3 ML PEN SC SCH ×4 (09:00→19:27)
[2020-07-25] MEDS: ENOXAPARIN INJ 40 MG/0.4 ML SYR SQ SCH ×2 (09:01→19:14)
[2020-07-25] MEDS: TRIAMTERENE/HCTZ 37.5/25MG TAB PO SCH ×2 (09:02→19:15)
[2020-07-25] MEDS: ASCORBIC ACID 500 MG TAB PO SCH (09:02)
[2020-07-25] MEDS: dexAMETHasone 6 MG in SYRINGE 0 ML IV SCH (09:02)
[2020-07-25] MEDS: METOPROLOL TARTRATE 50 MG TAB PO SCH ×2 (09:02→19:16)
[2020-07-25] MEDS: CHOLECALCIFEROL 1,000 UNITS 25 MCG TAB PO SCH (09:02)
[2020-07-25] MEDS: MAGNESIUM OXIDE 400 MG TAB PO SCH ×2 (09:02→19:15)
[2020-07-25] MEDS: PANTOprazole 40 MG TAB PO SCH (09:02)
[2020-07-25] MEDS: ARTIFICIAL TEARS OP SCH ×4 (09:03→19:13)
[2020-07-25] MEDS: REMDESIVIR 100 MG in SODIUM CHLORIDE 0.9% 230 ML IV SCH (12:45)
[2020-07-25] MEDS: SODIUM CHLORIDE 0.9% 10ML FLUSH IV SCH (13:55)
--- NOTE | 2020-07-25 16:22 | Hospitalist Progress Note ---
Date of Service July 25, 2020 Assessment & Plan (1) Acute respiratory failure with hypoxemia: stable on 6L NC past 72 hours, no increased work of breathing, able to ambulate in the room try to wean as tolerated, will likely take a few days to a week she is frustrated that she is not requiring less oxygen, told her it can take time (2) COVID-19: with multifocal pneumonia on CXR and hypoxia, still requiring 6L NC today continue dexamethasone and Remdesivir, day 4 other than some fatigue she is doing well eating well, no fever, no increased work of breathing depressed that she is not getting better faster (3) Elevated troponin: Troponin = 0.091. Patient denied CP -no acute ecg changes -trended downward -- this is demand ischemia in face of hypoxia no need to monitor further -Continue ASA, Atorvastatin, Lisinopril and Metoprolol (4) Hypertension: Blood pressure stable while Continues on metoprolol 50mg po BID plus Lisinopril (5) Diabetes mellitus: Chronic. VGL=686. Last HgbA1C in January 2020=7.1 monitor for hypoglycemia treat hyperglycemia with ISS, glucose up at 300 this evening will tighten correction factor to 20, carb ratio to 8 add NPH insulin 25 units in AM with dexamethasone (6) Atrial fibrillation: is on metoprolol, nsr on presentation (7) Chronic reflux esophagitis: remains on pantoprozole (8) DVT prophylaxis: Ppx - Lovenox 40 bid Code- Full (9) Depressed mood: she is upset about being here, worried about not getting better this is situational depression, would hold on SSRI at this time as her mood will get better as she improves Admission and Anticipated Discharge Date Admission Date: July 18, 2020 Subjective patient doing the same as yesterday, she is a little depressed, upset that she is not getting better faster I told her to hang in there, few more days, she said that is what I said yesterday she is eating okay, ambulating to the sink and toilet in the room no fever, vitals stable, she remains on 6L no labs today Review of Systems Review of Systems: All systems reviewed & are unremarkable except as noted in Subjective Constitutional: + weakness; no fever, no chills, no sweats and no fatigue Respiratory: + dyspnea on exertion; no cough and no dyspnea Psychiatric: + depression Physical Exam Constitutional: WD/WN, vitals as above no acute distress Neck: trachea midline, no thyromegaly Respiratory: normal respiratory effort, lungs clear to auscultation Cardiovascular: RRR, no murmur, no edema Gastrointestinal (Abdomen): normal bowel sounds, soft, nontender, no hepatosplenomegaly Musculoskeletal: no cyanosis or clubbing, extremities motor strength 5/5 Skin: no rashes, warm and dry Neurologic: patellar DTR's 2+ bilat, sensation intact and PERRL, EOMI, accomm odation nl, no face palsy, no dysarthria Psychiatric: Orientation: alert and oriented x 3 Affect: + depressed affect Lymphatic: no cervical or axillary lymphadenopathy Results & Data Results & Data ([facility]) Vital Signs (Past 12 Hours) Vital Signs Temp Pulse Pulse Resp BP Pulse Ox 07/25/20 15:37 36.6 C 77 24 146/74 H 92 07/25/20 11:42 36.8 C 59 L 18 129/54 L 94 07/25/20 07:54 36.5 C 67 18 149/69 H 92 07/25/20 05:09 159/68 H 07/25/20 05:01 74 Laboratory Results Laboratory Results - last 24 hr 07/25/20 07/25/20 07/25/20 07:56 11:45 16:30 POC Glucose 142 H 207 H 209 H 07/25/20 07/25/20 19:23 19:25 POC Glucose 307 H* 293 H Medications Administered Current Inpatient Medications Acetaminophen (Acetaminophen 325 Mg Tab) 650 mg PO Q4H PRN PRN Reason: pain/fever Stop: 08/18/20 01:05 Artificial Tears (Artificial Tears) 1 drops OP QID [facility] Stop: 08/18/20 08:59 Last Admin: 07/25/20 19:13 Dose: 1 drops Documented by: Ascorbic Acid (Ascorbic Acid 500 Mg Tab) 500 mg PO QAM [facility] Stop: 08/18/20 08:59 Last Admin: 07/25/20 09:02 Dose: 500 mg Documented by: Aspirin (Aspirin 81 Mg Ectab) 81 mg PO QPM [facility] Stop: 08/18/20 20:59 Last Admin: 07/25/20 19:15 Dose: 81 mg Documented by: Atorvastatin Calcium (Atorvastatin 20 Mg Tab) 20 mg PO HS [facility] Stop: 08/18/20 20:59 Last Admin: 07/25/20 19:15 Dose: 20 mg Documented by: Dextrose (Dextrose 50% 50 Ml Syringe) 25 - 50 ml IV UD PRN; Protocol PRN Reason: Hypoglycemia Protocol Stop: 08/18/20 01:05 Enoxaparin Sodium (Enoxaparin Inj 40 Mg/0.4 Ml Syr) 40 mg SQ BID [facility] Stop: 08/18/20 08:59 Last Admin: 07/25/20 19:14 Dose: 40 mg Documented by: Glucagon (Glucagon For Inj 1 Mg Vial) 1 mg SQ UD PRN; Protocol PRN Reason: Hypoglycemia Protocol Stop: 08/18/20 01:05 Glucose (Glucose 10 Tabs/Tube) 4 - 8 tabs PO UD PRN; Protocol PRN Reason: Hypoglycemia Protocol Stop: 08/18/20 01:05 Glucose (Glucose 40% Gel 15 Gm Tube) 15 - 30 gm PO UD PRN; Protocol PRN Reason: Hypoglycemia Protocol Stop: 08/18/20 01:05 Dexamethasone Sodium Phosphate (6 mg/ Syringe) 1.5 mls @ 1 mls/min IV DAILY [facility] Stop: 08/18/20 01:59 Last Admin: 07/25/20 09:02 Dose: 1 mls/min Documented by: Remdesivir 100 mg/ Sodium (Chloride) 250 mls @ 250 mls/hr IV Q24H [facility]; Protocol Stop: 07/26/20 12:59 Last Infusion: 07/25/20 13:50 Dose: Infused Documented by: Insulin Aspart (Insulin Aspart 100 Units/Ml 3 Ml Pen) 0 units SC ACHS [facility] Stop: 08/18/20 07:29 Last Admin: 07/25/20 19:27 Dose: 4 units Documented by: Lisinopril (Lisinopril 5 Mg Tab) 5 mg PO HS [facility] Stop: 08/18/20 20:59 Last Admin: 07/25/20 19:15 Dose: 5 mg Documented by: Magnesium Oxide (Magnesium Oxide 400 Mg Tab) 400 mg PO BID [facility] Stop: 08/18/20 08:59 Last Admin: 07/25/20 19:15 Dose: 400 mg Documented by: Metoprolol Tartrate (Metoprolol Tartrate 50 Mg Tab) 50 mg PO BID [facility] Stop: 08/18/20 08:59 Last Admin: 12/21/20 19:16 Dose: 50 mg Documented by: Miscellaneous (Carbohydrates For Hypoglycemia ) 15 - 30 gm PO UD PRN PRN Reason: Hypoglycemia Protocol Stop: 08/18/20 01:05 Ondansetron HCl (Ondansetron Inj 2 Mg/Ml 2 Ml Vial) 4 mg IV Q6H PRN PRN Reason: Nausea Stop: 08/18/20 01:05 Pantoprazole Sodium (Pantoprazole 40 Mg Tab) 40 mg PO DAILY [facility] Stop: 08/18/20 08:59 Last Admin: 07/25/20 09:02 Dose: 40 mg Documented by: Sodium Chloride (Sodium Chloride 0.9% 10ml Flush) 30 ml IV Q24H [facility] Stop: 07/26/20 12:01 Last Admin: 07/25/20 13:55 Dose: 30 ml Documented by: Triamterene/Hydrochlorothiazide (Triamterene/Hctz 37.5/25mg Tab) 1 tab PO BID [facility] Stop: 08/18/20 08:59 Last Admin: 07/25/20 19:15 Dose: 1 tab Documented by: Vitamin D (Cholecalciferol 1,000 Units 25 Mcg Tab) 1,000 units PO QAM [facility] Stop: 08/18/20 08:59 Last Admin: 07/25/20 09:02 Dose: 1,000 units Documented by: PG Care Time/CCT Total # of Minutes Spent Total Time Spent with Patient: Total time spent is greater than 50% in coordination of care (as documented) at patient's floor/unit and/or counseling patient: Coding Level of Care Code 82861 Subseq Hosp Care Lvl 3 Diagnoses Acute respiratory failure with hypoxemia J96.01 COVID-19 U07.1 Elevated troponin R77.8 Hypertension I10 Hypertension type: unspecified Diabetes mellitus E11.9 Diabetes mellitus complication status: without complication Diabetes mellitus terminal block assembler insulin use: without terminal block assembler use Diabetes mellitus type: type 2 Atrial fibrillation I48.91 Chronic reflux esophagitis K21.0 DVT prophylaxis Z29.9 Depressed mood R45.89 (1) Diabetes mellitus Diabetes mellitus complication status: without complication Diabetes mellitus terminal block assembler insulin use: without terminal block assembler use Diabetes mellitus type: type 2 Qualified Code(s): E11.9 - Type 2 diabetes mellitus without complications (2) Hypertension Hypertension type: unspecified Qualified Code(s): I10 - Essential (primary) hypertension
[2020-07-25] MEDS: ATORVASTATIN 20 MG TAB PO SCH (19:15)
[2020-07-25] MEDS: lisinopril 5 MG TAB PO SCH (19:15)
[2020-07-25] MEDS: ASPIRIN 81 MG ECTAB PO SCH (19:15)
[2020-07-26] MEDS: dexAMETHasone 6 MG in SYRINGE 0 ML IV SCH (09:08)
[2020-07-26] MEDS: INSULIN HUMAN NPH SC SCH (09:08)
[2020-07-26] MEDS: PANTOprazole 40 MG TAB PO SCH (09:09)
[2020-07-26] MEDS: TRIAMTERENE/HCTZ 37.5/25MG TAB PO SCH ×2 (09:09→22:00)
[2020-07-26] MEDS: CHOLECALCIFEROL 1,000 UNITS 25 MCG TAB PO SCH (09:09)
[2020-07-26] MEDS: INSULIN ASPART 100 UNITS/ML 3 ML PEN SC SCH ×4 (09:09→22:31)
[2020-07-26] MEDS: METOPROLOL TARTRATE 50 MG TAB PO SCH ×2 (09:09→22:01)
[2020-07-26] MEDS: MAGNESIUM OXIDE 400 MG TAB PO SCH ×2 (09:09→22:01)
[2020-07-26] MEDS: ASCORBIC ACID 500 MG TAB PO SCH (09:09)
[2020-07-26] MEDS: ARTIFICIAL TEARS OP SCH ×4 (09:10→22:01)
[2020-07-26] MEDS: ENOXAPARIN INJ 40 MG/0.4 ML SYR SQ SCH ×2 (09:10→22:01)
--- NOTE | 2020-07-26 09:51 | Hospitalist Progress Note ---
Date of Service July 26, 2020 Assessment & Plan (1) Acute respiratory failure with hypoxemia: stable on 6L NC past 4 days, no increased work of breathing, able to ambulate in the room try to wean as tolerated, will likely take a few days to a week she is frustrated that she is not requiring less oxygen, told her it can take time but she is doing everything right, she is eating, moving her bowels, making urine will downgrade to medical floor today (2) COVID-19: with multifocal pneumonia on CXR and hypoxia, still requiring 6L NC today continue dexamethasone and Remdesivir, day 5 other than some fatigue she is doing well eating well, no fever, no increased work of breathing depressed that she is not getting better faster (3) Elevated troponin: Troponin = 0.091. Patient denied CP -no acute ecg changes -trended downward -- this is demand ischemia in face of hypoxia no need to monitor further -Continue ASA, Atorvastatin, Lisinopril and Metoprolol (4) Hypertension: Blood pressure stable while Continues on metoprolol 50mg po BID plus Lisinopril (5) Diabetes mellitus: Chronic. YBH=610. Last HgbA1C in January 2020=7.1 monitor for hypoglycemia, no episodes treat hyperglycemia with ISS, glucose up at 300 evening of 07/25 will tighten correction factor to 20, carb ratio to 8 add NPH insulin 25 units in AM with dexamethasone this morning follow sugars today to see if adjustments help (6) Atrial fibrillation: is on metoprolol, nsr on presentation (7) Chronic reflux esophagitis: remains on pantoprozole (8) DVT prophylaxis: Ppx - Lovenox 40 bid Code- Full (9) Depressed mood: she is upset about being here, worried about not getting better this is situational depression, would hold on SSRI at this time as her mood will get better as she improves Admission and Anticipated Discharge Date Admission Date: July 18, 2020 Subjective patient is doing great, ate her breakfast, walked independently to the toilet, moved her bowels, making urine no dyspnea at rest, still on 6L she remains frustrated, wants to get better faster assured her that this takes time, it is a good sign that she is not getting worse I anticipate her oxygen requirements to improve over next few days she says she is sleeping well Review of Systems Review of Systems: All systems reviewed & are unremarkable except as noted in Subjective Psychiatric: + depression Physical Exam Constitutional: WD/WN, vitals as above no acute distress Neck: trachea midline, no thyromegaly Respiratory: normal respiratory effort, lungs clear to auscultation Cardiovascular: RRR, no murmur, no edema Gastrointestinal (Abdomen): normal bowel sounds, soft, nontender, no hepatosplenomegaly Musculoskeletal: no cyanosis or clubbing, extremities motor strength 5/5 Skin: no rashes, warm and dry Neurologic: patellar DTR's 2+ bilat, sensation intact and PERRL, EOMI, accommodation nl, no face palsy, no dysarthria Psychiatric: Orientation: alert and oriented x 3 Affect: + depressed affect Lymphatic: no cervical or axillary lymphadenopathy Results & Data Results & Data ([facility]) Vital Signs (Past 12 Hours) Vital Signs Temp Pulse Resp BP Pulse Ox 07/26/20 07:44 37.0 C 79 23 163/71 H 93 07/26/20 05:05 36.5 C 77 21 156/70 H 93 07/25/20 23:54 36.6 C 63 19 137/72 94 Laboratory Results Laboratory Results - last 24 hr 07/25/20 07/25/20 07/25/20 11:45 16:30 19:23 POC Glucose 207 H 209 H 307 H* 07/25/20 07/26/20 19:25 07:43 POC Glucose 293 H 163 H Medications Administered Current Inpatient Medications Acetaminophen (Acetaminophen 325 Mg Tab) 650 mg PO Q4H PRN PRN Reason: pain/fever Stop: 08/18/20 01:05 Artificial Tears (Artificial Tears) 1 drops OP QID [facility] Stop: 08/18/20 08:59 Last Admin: 07/26/20 09:10 Dose: 1 drops Documented by: Ascorbic Acid (Ascorbic Acid 500 Mg Tab) 500 mg PO QAM [facility] Stop: 08/18/20 08:59 Last Admin: 07/26/20 09:09 Dose: 500 mg Documented by: Aspirin (Aspirin 81 Mg Ectab) 81 mg PO QPM [facility] Stop: 08/18/20 20:59 Last Admin: 07/25/20 19:15 Dose: 81 mg Documented by: Atorvastatin Calcium (Atorvastatin 20 Mg Tab) 20 mg PO HS [facility] Stop: 08/18/20 20:59 Last Admin: 07/25/20 19:15 Dose: 20 mg Documented by: Dextrose (Dextrose 50% 50 Ml Syringe) 25 - 50 ml IV UD PRN; Protocol PRN Reason: Hypoglycemia Protocol Stop: 08/18/20 01:05 Enoxaparin Sodium (Enoxaparin Inj 40 Mg/0.4 Ml Syr) 40 mg SQ BID [facility] Stop: 08/18/20 08:59 Last Admin: 07/26/20 09:10 Dose: 40 mg Documented by: Glucagon (Glucagon For Inj 1 Mg Vial) 1 mg SQ UD PRN; Protocol PRN Reason: Hypoglycemia Protocol Stop: 08/18/20 01:05 Glucose (Glucose 10 Tabs/Tube) 4 - 8 tabs PO UD PRN; Protocol PRN Reason: Hypoglycemia Protocol Stop: 08/18/20 01:05 Glucose (Glucose 40% Gel 15 Gm Tube) 15 - 30 gm PO UD PRN; Protocol PRN Reason: Hypoglycemia Protocol Stop: 08/18/20 01:05 Dexamethasone Sodium Phosphate (6 mg/ Syringe) 1.5 mls @ 1 mls/min IV DAILY [facility] Stop: 08/18/20 01:59 Last Admin: 07/26/20 09:08 Dose: 1 mls/min Documented by: Remdesivir 100 mg/ Sodium (Chloride) 250 mls @ 250 mls/hr IV Q24H [facility]; Protocol Stop: 07/26/20 12:59 Last Infusion: 07/25/20 13:50 Dose: Infused Documented by: Insulin Aspart (Insulin Aspart 100 Units/Ml 3 Ml Pen) 0 units SC ACHS [facility] Stop: 08/18/20 07:29 Last Admin: 07/26/20 09:09 Dose: 8 units Documented by: Insulin Human NPH (Insulin Human Nph) 25 units SC QAM [facility] Stop: 08/25/20 08:59 Last Admin: 07/26/20 09:08 Dose: 25 units Documented by: Lisinopril (Lisinopril 5 Mg Tab) 5 mg PO HS [facility] Stop: 08/18/20 20:59 Last Admin: 07/25/20 19:15 Dose: 5 mg Documented by: Magnesium Oxide (Magnesium Oxide 400 Mg Tab) 400 mg PO BID [facility] Stop: 08/18/20 08:59 Last Admin: 07/26/20 09:09 Dose: 400 mg Documented by: Metoprolol Tartrate (Metoprolol Tartrate 50 Mg Tab) 50 mg PO BID [facility] Stop: 08/18/20 08:59 Last Admin: 07/26/20 09:09 Dose: 50 mg Documented by: Miscellaneous (Carbohydrates For Hypoglycemia ) 15 - 30 gm PO UD PRN PRN Reason: Hypoglycemia Protocol Stop: 08/18/20 01:05 Ondansetron HCl (Ondansetron Inj 2 Mg/Ml 2 Ml Vial) 4 mg IV Q6H PRN PRN Reason: Nausea Stop: 08/18/20 01:05 Pantoprazole Sodium (Pantoprazole 40 Mg Tab) 40 mg PO DAILY [facility] Stop: 08/18/20 08:59 Last Admin: 07/26/20 09:09 Dose: 40 mg Documented by: Sodium Chloride (Sodium Chloride 0.9% 10ml Flush) 30 ml IV Q24H [facility] Stop: 07/26/20 12:01 Last Admin: 07/25/20 13:55 Dose: 30 ml Documented by: Triamterene/Hydrochlorothiazide (Triamterene/Hctz 37.5/25mg Tab) 1 tab PO BID [facility] Stop: 08/18/20 08:59 Last Admin: 07/26/20 09:09 Dose: 1 tab Documented by: Vitamin D (Cholecalciferol 1,000 Units 25 Mcg Tab) 1,000 units PO QAM [facility] Stop: 08/18/20 08:59 Last Admin: 07/26/20 09:09 Dose: 1,000 units Documented by: PG Care Time/CCT Total # of Minutes Spent Total Time Spent with Patient: Total time spent is greater than 50% in coordination of care (as documented) at patient's floor/unit and/or counseling patient: Coding Level of Care Code 50946 Subseq Hosp Care Lvl 2 Diagnoses Acute respiratory failure with hypoxemia J96.01 COVID-19 U07.1 Elevated troponin R77.8 Hypertension I10 Hypertension type: unspecified Diabetes mellitus E11.9 Diabetes mellitus complication status: without complication Diabetes mellitus mcc insulin use: without adjunct faculty for medical terminology use Diabetes mellitus type: type 2 Atrial fibrillation I48.91 Chronic reflux esophagitis K21.0 DVT prophylaxis Z29.9 Depressed mood R45.89 (1) Diabetes mellitus Diabetes mellitus complication status: without complication Diabetes mellitus mcc insulin use: without mcc use Diabetes mellitus type: type 2 Qualified Code(s): E11.9 - Type 2 diabetes mellitus without complications (2) Hypertension Hypertension type: unspecified Qualified Code(s): I10 - Essential (primary) hypertension
[2020-07-26] MEDS: REMDESIVIR 100 MG in SODIUM CHLORIDE 0.9% 230 ML IV SCH (12:50)
[2020-07-26] MEDS: SODIUM CHLORIDE 0.9% 10ML FLUSH IV SCH (12:51)
[2020-07-26] MEDS: ASPIRIN 81 MG ECTAB PO SCH (22:00)
[2020-07-26] MEDS: ATORVASTATIN 20 MG TAB PO SCH (22:00)
[2020-07-26] MEDS: lisinopril 5 MG TAB PO SCH (22:02)
[2020-07-27] MEDS: MELATONIN 3 MG TAB PO PRN ×2 (02:03→22:30)
[2020-07-27] MEDS: CHOLECALCIFEROL 1,000 UNITS 25 MCG TAB PO SCH (08:34)
[2020-07-27] MEDS: MAGNESIUM OXIDE 400 MG TAB PO SCH ×2 (08:34→21:05)
[2020-07-27] MEDS: PANTOprazole 40 MG TAB PO SCH (08:34)
[2020-07-27] MEDS: ENOXAPARIN INJ 40 MG/0.4 ML SYR SQ SCH ×2 (08:34→21:04)
[2020-07-27] MEDS: dexAMETHasone 6 MG in SYRINGE 0 ML IV SCH (08:34)
[2020-07-27] MEDS: METOPROLOL TARTRATE 50 MG TAB PO SCH ×2 (08:34→21:04)
[2020-07-27] MEDS: TRIAMTERENE/HCTZ 37.5/25MG TAB PO SCH ×2 (08:35→21:05)
[2020-07-27] MEDS: ARTIFICIAL TEARS OP SCH ×4 (08:35→21:05)
[2020-07-27] MEDS: ASCORBIC ACID 500 MG TAB PO SCH (08:35)
[2020-07-27] MEDS: INSULIN ASPART 100 UNITS/ML 3 ML PEN SC SCH ×4 (09:27→21:06)
[2020-07-27] MEDS: INSULIN HUMAN NPH SC SCH (09:28)
--- NOTE | 2020-07-27 14:39 | Hospitalist Progress Note ---
Date of Service July 27, 2020 Assessment & Plan (1) Acute respiratory failure with hypoxemia: stable on 6L NC for 5 days, no increased work of breathing, able to ambulate in the room titrated down slightly to 4L NC today she is frustrated that she is not requiring less oxygen, but she is doing everything right, she is eating, moving her bowels, making urine try to wean further, work towards discharge (2) COVID-19: with multifocal pneumonia on CXR and hypoxia, down to 4L NC today continue dexamethasone day 6 completed 5 days of Remdesivir other than some fatigue she is doing well eating well, no fever, no increased work of breathing depressed that she is not getting better faster tried to encourage her that she is requiring less oxygen (3) Elevated troponin: Troponin = 0.091. Patient denied CP -no acute ecg changes -trended downward -- this is demand ischemia in face of hypoxia no need to monitor further -Continue ASA, Atorvastatin, Lisinopril and Metoprolol (4) Hypertension: Blood pressure stable while Continues on metoprolol 50mg po BID plus Lisinopril (5) Diabetes mellitus: Chronic. YGQ=175. Last HgbA1C in January 2020=7.1 monitor for hypoglycemia, no episodes treat hyperglycemia with ISS, glucose up at 300 evening of 07/25 will tighten correction factor to 20, carb ratio to 8 add NPH insulin 25 units in AM with dexamethasone this morning sugars still high during the day, all > 200 will tighten carb ratio as she is eating well (6) Atrial fibrillation: is on metoprolol, nsr on presentation (7) Chronic reflux esophagitis: remains on pantoprozole (8) DVT prophylaxis: Ppx - Lovenox 40 bid Code- Full (9) Depressed mood: she is upset about being here, worried about not getting better this is situational depression, would hold on SSRI at this time as her mood will get better as she improves Admission and Anticipated Discharge Date Admission Date: July 18, 2020 Subjective patient continues to be upset that she is in the hospital she continues to eat well, ambulate to the bathroom breathing is stable, titrated down to 4L, told her this is a good sign, she shrugged her shoulders vitals stable, no fever told her we can work to get her home if her oxygen requirements go down Review of Systems Review of Systems: All systems reviewed & are unremarkable except as noted in Subjective Constitutional: no fever, no chills, no sweats, no fatigue and no weakness Respiratory: no dyspnea and no dyspnea on exertion Psychiatric: + depression Physical Exam Constitutional: WD/WN, vitals as above no acute distress Neck: trachea midline, no thyromegaly Respiratory: normal respiratory effort, lungs clear to auscultation Cardiovascular: RRR, no murmur, no edema Gastrointestinal (Abdomen): normal bowel sounds, soft, nontender, no hepatosplenomegaly Musculoskeletal: no cyanosis or clubbing, extremities motor strength 5/5 Skin: no rashes, warm and dry Neurologic: patellar DTR's 2+ bilat, sensation intact and PERRL, EOMI, accommodation nl, no face palsy, no dysarthria Psychiatric: Orientation: alert and oriented x 3 Affect: + depressed affect Lymphatic: no cervical or axillary lymphadenopathy Results & Data Results & Data ([facility]) Vital Signs (Past 12 Hours) Vital Signs Temp Pulse Resp BP Pulse Ox 07/27/20 07:53 36.6 C 72 16 146/72 H 93 Laboratory Results Laboratory Results - last 24 hr 07/26/20 07/26/20 07/27/20 18:13 20:45 09:24 POC Glucose 233 H 270 H 203 H 07/27/20 11:55 POC Glucose 202 H Medications Administered Current Inpatient Medications Acetaminophen (Acetaminophen 325 Mg Tab) 650 mg PO Q4H PRN PRN Reason: pain/fever Stop: 08/18/20 01:05 Artificial Tears (Artificial Tears) 1 drops OP QID [facility] Stop: 08/18/20 08:59 Last Admin: 07/27/20 13:05 Dose: 1 drops Documented by: Ascorbic Acid (Ascorbic Acid 500 Mg Tab) 500 mg PO QAM [facility] Stop: 08/18/20 08:59 Last Admin: 07/27/20 08:35 Dose: 500 mg Documented by: Aspirin (Aspirin 81 Mg Ectab) 81 mg PO QPM [facility] Stop: 08/18/20 20:59 Last Admin: 07/26/20 22:00 Dose: 81 mg Documented by: Atorvastatin Calcium (Atorvastatin 20 Mg Tab) 20 mg PO HS [facility] Stop: 08/18/20 20:59 Last Admin: 07/26/20 22:00 Dose: 20 mg Documented by: Dextrose (Dextrose 50% 50 Ml Syringe) 25 - 50 ml IV UD PRN; Protocol PRN Reason: Hypoglycemia Protocol Stop: 08/18/20 01:05 Enoxaparin Sodium (Enoxaparin Inj 40 Mg/0.4 Ml Syr) 40 mg SQ BID [facility] Stop: 08/18/20 08:59 Last Admin: 07/27/20 08:34 Dose: 40 mg Documented by: Glucagon (Glucagon For Inj 1 Mg Vial) 1 mg SQ UD PRN; Protocol PRN Reason: Hypoglycemia Protocol Stop: 08/18/20 01:05 Glucose (Glucose 10 Tabs/Tube) 4 - 8 tabs PO UD PRN; Protocol PRN Reason: Hypoglycemia Protocol Stop: 08/18/20 01:05 Glucose (Glucose 40% Gel 15 Gm Tube) 15 - 30 gm PO UD PRN; Protocol PRN Reason: Hypoglycemia Protocol Stop: 08/18/20 01:05 Dexamethasone Sodium Phosphate (6 mg/ Syringe) 1.5 mls @ 1 mls/min IV DAILY [facility] Stop: 08/18/20 01:59 Last Admin: 07/27/20 08:34 Dose: 1 mls/min Documented by: Insulin Aspart (Insulin Aspart 100 Units/Ml 3 Ml Pen) 0 units SC ACHS [facility] Stop: 08/18/20 07:29 Last Admin: 07/27/20 13:02 Dose: 9 units Documented by: Insulin Human NPH (Insulin Human Nph) 25 units SC QAM [facility] Stop: 08/25/20 08:59 Last Admin: 07/27/20 09:28 Dose: 25 units Documented by: Lisinopril (Lisinopril 5 Mg Tab) 5 mg PO HS [facility] Stop: 08/18/20 20:59 Last Admin: 07/26/20 22:02 Dose: 5 mg Documented by: Magnesium Oxide (Magnesium Oxide 400 Mg Tab) 400 mg PO BID [facility] Stop: 08/18/20 08:59 Last Admin: 07/27/20 08:34 Dose: 400 mg Documented by: Melatonin (Melatonin 3 Mg Tab) 3 mg PO HS PRN PRN Reason: Sleep Stop: 08/26/20 01:14 Last Admin: 07/27/20 02:03 Dose: 3 mg Documented by: Metoprolol Tartrate (Metoprolol Tartrate 50 Mg Tab) 50 mg PO BID [facility] Stop: 08/18/20 08:59 Last Admin: 07/27/20 08:34 Dose: 50 mg Documented by: Miscellaneous (Carbohydrates For Hypoglycemia ) 15 - 30 gm PO UD PRN PRN Reason: Hypoglycemia Protocol Stop: 08/18/20 01:05 Ondansetron HCl (Ondansetron Inj 2 Mg/Ml 2 Ml Vial) 4 mg IV Q6H PRN PRN Reason: Nausea Stop: 08/18/20 01:05 Pantoprazole Sodium (Pantoprazole 40 Mg Tab) 40 mg PO DAILY [facility] Stop: 08/18/20 08:59 Last Admin: 07/27/20 08:34 Dose: 40 mg Documented by: Triamterene/Hydrochlorothiazide (Triamterene/Hctz 37.5/25mg Tab) 1 tab PO BID [facility] Stop: 08/18/20 08:59 Last Admin: 07/27/20 08:35 Dose: 1 tab Documented by: Vitamin D (Cholecalciferol 1,000 Units 25 Mcg Tab) 1,000 units PO QAM [facility] Stop: 08/18/20 08:59 Last Admin: 07/27/20 08:34 Dose: 1,000 units Documented by: PG Care Time/CCT Total # of Minutes Spent Total Time Spent with Patient: Total time spent is greater than 50% in coordination of care (as documented) at patient's floor/unit and/or counseling patient: Coding Level of Care Code 05710 Subseq Hosp Care Lvl 2 Diagnoses Acute respiratory failure with hypoxemia J96.01 COVID-19 U07.1 Elevated troponin R77.8 Hypertension I10 Hypertension type: unspecified Diabetes mellitus E11.9 Diabetes mellitus type: type 2 Diabetes mellitus salvage determiner insulin use: without salvage determiner use Diabetes mellitus complication status: without complication Atrial fibrillation I48.91 Chronic reflux esophagitis K21.0 DVT prophylaxis Z29.9 Depressed mood R45.89 (1) Hypertension Hypertension type: unspecified Qualified Code(s): I10 - Essential (primary) hypertension (2) Diabetes mellitus Diabetes mellitus type: type 2 Diabetes mellitus skilled nursing insulin use: without salvage determiner use Diabetes mellitus complication status: without complication Qualified Code(s): E11.9 - Type 2 diabetes mellitus without complications
[2020-07-27] MEDS: ASPIRIN 81 MG ECTAB PO SCH (21:04)
[2020-07-27] MEDS: ATORVASTATIN 20 MG TAB PO SCH (21:05)
[2020-07-27] MEDS: lisinopril 5 MG TAB PO SCH (21:05)
[2020-07-27] MEDS: ACETAMINOPHEN 325 MG TAB PO PRN (22:30)
[2020-07-28] MEDS: ACETAMINOPHEN 325 MG TAB PO PRN (04:08)
[2020-07-28 07:43] VITALS: TEMP 98.2
[2020-07-28] MEDS: dexAMETHasone 6 MG in SYRINGE 0 ML IV SCH (08:15)
[2020-07-28] MEDS: ARTIFICIAL TEARS OP SCH ×2 (08:15→13:22)
[2020-07-28] MEDS: CHOLECALCIFEROL 1,000 UNITS 25 MCG TAB PO SCH (08:16)
[2020-07-28] MEDS: ENOXAPARIN INJ 40 MG/0.4 ML SYR SQ SCH (08:16)
[2020-07-28] MEDS: MAGNESIUM OXIDE 400 MG TAB PO SCH (08:16)
[2020-07-28] MEDS: ASCORBIC ACID 500 MG TAB PO SCH (08:16)
[2020-07-28] MEDS: TRIAMTERENE/HCTZ 37.5/25MG TAB PO SCH (08:16)
[2020-07-28] MEDS: METOPROLOL TARTRATE 50 MG TAB PO SCH (08:17)
[2020-07-28] MEDS: PANTOprazole 40 MG TAB PO SCH (08:17)
[2020-07-28] MEDS: INSULIN ASPART 100 UNITS/ML 3 ML PEN SC SCH ×2 (08:58→13:18)
[2020-07-28] MEDS: INSULIN HUMAN NPH SC SCH (08:59)
[2020-07-28 14:51] VITALS: BP 134/79; PULSE 76; O2SAT 92
--- NOTE | 2020-07-29 10:37 | Discharge Summary ---
Date of Service July 28, 2020 Admission HPI Per Admitting Provider Melany Cota is an 85yo female with history of HTN, HLP, DM and GERD presenting with hypoxia secondary to Covid-19. Patient began feeling ill appx 2 weeks ago with weakness and fatigue. She has had mild SOB. She denies CP, nausea, vomiting, diarrhea. No loss of taste or smell. Patient's with similar symptoms. On arrival to the ER she was found to be febrile, hypoxic to 88% on room air. Saturations improved with placement of 2L O2 by NC - currently 95% No additional complaints at this time ER Course: Tylenol, NSS x 1L Principal Diagnosis COVID 19 pneumonia Discharge Exam Constitutional WD/WN, vitals as above no acute distress Neck trachea midline, no thyromegaly Respiratory normal respiratory effort, lungs clear to auscultation Cardiovascular RRR, no murmur, no edema Gastrointestinal (Abdomen) normal bowel sounds, soft, nontender, no hepatosplenomegaly Musculoskeletal no cyanosis or clubbing, extremities motor strength 5/5 Skin no rashes, warm and dry Neurologic patellar DTR's 2+ bilat, sensation intact and PERRL, EOMI, accommodation nl, no face palsy, no dysarthria Psychiatric A+Ox3, euthymic affect Lymphatic no cervical or axillary lymphadenopathy Discharge Data Allergies Allergy/AdvReac Type Severity Reaction Status Date / Time ibuprofen AdvReac Intermediate AFFECTS Verified 07/18/20 21:50 KIDNEY FUNCTION Consultations 07/18/20 23:33 ED Decision to Admit Stat Hospital Course (1) Acute respiratory failure with hypoxemia: stable on 6L NC for 5 days, no increased work of breathing, able to ambulate in the room titrated down to 2L at rest and 2L on exertion no distress when ambulating, fully independent in the room eating and drinking well arranged for home oxygen as likely will need oxygen for 1-2 weeks more (2) COVID-19: with multifocal pneumonia on CXR and hypoxia, down to 2L NC today both at rest and on ambulation completed 10 days of dexamethasone completed 5 days of Remdesivir other than some fatigue she is doing well eating well, no fever, no increased work of breathing discharge to home with oxygen arranged rest and recover at home with family (3) Elevated troponin: Troponin = 0.091. Patient denied CP -no acute ecg changes -trended downward -- this is demand ischemia in face of hypoxia no need to monitor further -Continue ASA, Atorvastatin, Lisinopril and Metoprolol (4) Hypertension: Blood pressure stable while Continues on metoprolol 50mg po BID plus Lisinopril (5) Diabetes mellitus: Chronic. DTF=231. Last HgbA1C in January 2020=7.1 monitor for hypoglycemia, no episodes treat hyperglycemia with ISS, glucose up at 300 evening of 07/25 will tighten correction factor to 20, carb ratio to 8 add NPH insulin 25 units in AM with dexamethasone this morning sugars still high during the day, all > 200 sugars now better off steroids (6) Atrial fibrillation: is on metoprolol, nsr on presentation (7) Chronic reflux esophagitis: remains on pantoprozole (8) DVT prophylaxis: Ppx - Lovenox 40 bid Code- Full (9) Depressed mood: she is upset about being here, worried about not getting better this is situational depression, would hold on SSRI at this time as her mood will get better as she improves Total Time Total Time Spent Total Time Spent (In Minutes): 32 minutes Total Time Includes: Examination of the Patient, Discharge Planning and Medication Reconciliation Discharge Plan Discharge Items Patient Disposition: Home - Self-Care Reason For Visit: COVID-19,HYPOXIA Discharge Diagnosis: COVID 19 pneumonia Acute hypoxic respiratory failure Condition on Discharge: Good Goals: stay well nourished, well hydrated get rest, slowly increase activity use oxygen for the next 1-2 weeks Activity: Resume your previous activity Weightbearing: Full weightbearing Non-emergency contact: Primary Care Provider Call non-emergency contact if: you have any medication questions and your symptoms worsen Follow-up/Referrals: Melissa Ewing MD [Primary Care Provider] - (one week) Diet: Carb Consistent or DM2 Addtl Attending Provider Instructions: Medications: no changes, resume all your home medications you completed a full course of dexamethasone while here Oxygen: you will require 2L at rest and 2L on exertion, suspect you will need oxygen for the next 1-2 weeks follow up with Dr. Ewing, she can perform a walking test in the office to see if you still need oxygen COVID 19 pneumonia responded well to dexamethasone, completed 10 days, no further treatment needed you were stable on 6L nasal canula for several days, now titrated down to 2L at rest and on exertion continue oxygen for 1-2 weeks recommend that you follow up with Dr. Ewing you are no longer contagious as your symptoms started over 14 days ago, no need for further isolation Pending Studies at Discharge: No Stand-Alone Forms: My [facility] Medications and DC Order Prescriptions: Continued fluticasone propionate 50 mcg/actuation spray,suspension See Rx Instructions .ROUTE .COMPLEX Qty: 48 RF: 3 triamterene-hydrochlorothiazid 37.5-25 mg tablet 1 tab PO BID Qty: 180 RF: 3 atorvastatin 20 mg tablet 20 mg PO HS Qty: 90 RF: 3 metoprolol tartrate 50 mg tablet 50 mg PO BID Qty: 180 RF: 3 lisinopril 5 mg tablet 5 mg PO HS Qty: 90 RF: 3 omeprazole 20 mg capsule,delayed release(DR/EC) 20 mg PO DAILY Qty: 90 RF: 1 glucosamine sulfate [Glucosamine] 500 mg tablet 500 mg PO BID Qty: 60 RF: 0 triamcinolone acetonide 0.1 % cream 1 appln TOP BID Qty: 30 RF: 2 (DME) OneTouch Ultra Blue Test Strip strip See Rx Instructions .ROUTE .MEDSUPPLY Qty: 100 RF: 1 (DME) blood-glucose meter [OneTouch Ultra2 Meter] kit See Rx Instructions .ROUTE .MEDSUPPLY Qty: 1 RF: 0 (DME) lancets [OneTouch UltraSoft Lancets] misc See Rx Instructions .ROUTE .MEDSUPPLY Qty: 100 RF: 1 multivitamin tablet 1 tab PO QAM RF: 0 omega-3 fatty acids 1,000 mg capsule 1,000 mg PO QAM RF: 0 aspirin 81 mg tablet,delayed release (DR/EC) 81 mg PO QPM RF: 0 acetaminophen 500 mg tablet 500 mg PO UD PRN (Reason: Pain) RF: 0 calcium carbonate [Calcium 500] 500 mg calcium (1,250 mg) tablet 500 mg PO QAM RF: 0 ascorbic acid (vitamin C) [Vitamin C] 500 mg capsule, extended release 500 mg PO QAM RF: 0 cholecalciferol (vitamin D3) 1,000 unit capsule 1,000 units PO QAM RF: 0 magnesium 200 mg tablet 200 mg PO BID RF: 0 Systane Ultra 0.4-0.3 % drops 1 drops OP BID RF: 0 Artificial Tears (PF) 0.1-0.3 % Dropperette 1 drp OPHTHALMIC (EYE) QID RF: 0 potassium chloride 10 mEq capsule, extended release 30 meq PO BID RF: 0 Discharge Orders: Discharge Order (Routine); Ordered 07/28/20 Ordered By: Carlo Pulido/Other Patient Handouts: COVID-19 Prevention, COVID-19 Home Care, Using Oxygen Safely, Traveling with Oxygen, Using an Oxygen Tank at Home Admission Data Admit Date/Time: 07/18/20 23:16 Attending Provider: Carlo Gottlieb Admit Provider: Acacia Sharma Primary Care Provider: Melissa Ewing Other Providers: Acacia Sharma Other Interventions: Discharge Summary Assessment (RN) Last Done: 07/28/20 14:50 Coding Level of Care Code D/C Day Management >30 mins Diagnoses Acute respiratory failure with hypoxemia J96.01 COVID-19 U07.1 Elevated troponin R77.8 Hypertension I10 Hypertension type: unspecified Diabetes mellitus E11.9 Diabetes mellitus complication status: without complication Diabetes mellitus long-term insulin use: without long-term use Diabetes mellitus type: type 2 Atrial fibrillation I48.91 Chronic reflux esophagitis K21.0 DVT prophylaxis Z29.9 Depressed mood R45.89
== END 2020-07-28 16:18 | disposition home or self-care (01) | DRG 177 ==
LOC: ED 20:29 → SUATTDRO 23:16 → 2E 07-19 00:59 → SUATTDRO 07-19 01:02 → 2E 07-20 18:24 → 3N 07-26 09:48 → 3E 07-26 23:27
DX: E86.0 Dehydration; Z79.82 Long term (current) use of aspirin; Z83.3 Family history of diabetes mellitus; E11.649 Type 2 diabetes mellitus with hypoglycemia without coma; I10 Essential (primary) hypertension; Z82.49 Family history of ischemic heart disease and other diseases of the circulatory system; I24.8 Other forms of acute ischemic heart disease; J12.89 Other viral pneumonia; J96.01 Acute respiratory failure with hypoxia; H91.93 Unspecified hearing loss, bilateral; E78.5 Hyperlipidemia, unspecified; I48.91 Unspecified atrial fibrillation; F32.9 Major depressive disorder, single episode, unspecified; K21.00 Gastro-esophageal reflux disease with esophagitis, without bleeding; U07.1 COVID-19